=== PATIENT | male | born 1935 | race Caucasian/White ===

== ENCOUNTER 2017-02-17 11:05 | Inpatient (IN) | payer MEDICARE, BC, OTHER ==
[2017-02-17] MEDS ORDERED: Acetaminophen 325 MG Tab PO ONE (12:00)
[2017-02-17] MEDS ORDERED: Sodium Chloride 0.9% 1,000 ML IV ONE (12:00)
--- NOTE | 2017-02-17 12:05 | EDM.PDOC ---
ED HPI GENERAL MEDICAL PROBLEM - General Chief Complaint: General Stated Complaint: WEAK AND FEVER Time Seen by Provider: 02/17/17 12:00 Source of Information: Reports: Patient, Family History Limitations: Reports: No Limitations - History of Present Illness INITIAL COMMENTS - FREE TEXT/NARRATIVE: HISTORY AND PHYSICAL: History of present illness: [Patient comes to the emergency room, brought in by family. He is complaining of fever, increased weakness, fatigue and dry cough. Patient lives independently with his at a local care home community but he is currently being worked up for dementia by a clinic in [place], with [facility] care placement a definite possibility according to patient's niece. noticed that patient required more help with ADLs today and that he felt warm to touch. Patient complained of not feeling well and generalized malaise. Did not check temperature at home. Has felt cold on and off all morning. No earaches runny nose or sore throat. He's had a cough but no sputum production. Appetite has been decreased over the past 24 hours. No nausea or vomiting. He denies abdominal pain no change to bowel or bladder. No muscle or joint aches or pains.] Review of systems: As per history of present illness and below otherwise all systems reviewed and negative. Past medical history: As per history of present illness and as reviewed below otherwise noncontributory. Surgical history: As per history of present illness and as reviewed below otherwise noncontributory. Social history: No reported history of drug or alcohol abuse. Family history: As per history of present illness and as reviewed below otherwise noncontributory. Physical exam: HEENT: Atraumatic, normocephalic. TMs are pearly quijano and without erythema. Oral mucous membranes are pink and moist. No tonsillar swelling, erythema or exudate. Neck supple. No lymphadenopathy. Lungs: Clear to auscultation, breath sounds equal bilaterally. No wheezing, crackles or rales. Heart: S1S2, regular, negative for clicks, rubs, or JVD. Abdomen: Soft, nondistended, nontender. Negative for masses or hepatosplenomegaly. Negative for costovertebral tenderness. Pelvis: Stable nontender. Genitourinary: Deferred. Rectal: Deferred. Extremities: Atraumatic. Neurovascular unremarkable. Neuro: Awake, alert, oriented. Motor and sensory unremarkable throughout. Exam nonfocal. Diagnostics: [CBC, CMP, influenza A&B swab, UA, chest x-ray] Therapeutics: [250mL bolus NS, then 250mL/hour, Tamiflu 75mg po, Levaquin 500mg IV] Impression: [Influenza A pneumonia] Plan: Influenza swab +. Admit to inpatient under the care of Dr. Morgan Macdonald. Family is in agreement with today's plan. ] Definitive disposition and diagnosis as appropriate pending reevaluation and review of above. generalized Pain Score (Numeric/FACES): 3 - Related Data Allergies Allergy/AdvReac Type Severity Reaction Status Date / Time No Known Allergies Allergy Verified 07/30/14 15:37 Home Meds: Home Meds amLODIPine/atorvaSTATin [Amlodipine-Atorvast 10-10 mg] 10 mg 02/17/17 [History] Past Medical History - Past Health History Medical/Surgical History: Denies Medical/Surgical History Other HEENT History: Minimal hearing impairment "selective hearing more than anything" Cardiovascular History: Reports: None Respiratory History: Reports: None Other Gastrointestinal History: Heartburn in younger years, none for several years Genitourinary History: Reports: None Musculoskeletal History: Reports: None Other Musculoskeletal History: Current Soft tissue mass Left Forearm, "tender when bumped" Neurological History: Reports: Other (See Below) Other Neuro History: increased confusion, difficulty sleeping Psychiatric History: Reports: Dementia Endocrine/Metabolic History: Reports: None Hematologic History: Reports: None Dermatologic History: Reports: None - Past Surgical History Other GI Surgeries/Procedures: Relative states he had resection of colon last summer Social & Family History - Family History Family Medical History: Noncontributory - Tobacco Use Smoking Status *Q: Unknown Ever Smoked Second Hand Smoke Exposure: No - Caffeine Use Caffeine Use: Reports: None, Coffee - Recreational Drug Use Recreational Drug Use: No Drug Use in Last 12 Months: No ED ROS GENERAL - Review of Systems Review Of Systems: ROS reveals no pertinent complaints other than HPI. ED EXAM, GENERAL - Physical Exam Exam: See Below Course - Vital Signs Last Recorded V/S: Last Vital Signs Temp 100.8 F H 02/17/17 13:24 Pulse 98 02/17/17 11:45 Resp 18 02/17/17 11:45 BP 178/88 H 02/17/17 11:45 Pulse Ox 96 02/17/17 11:45 - Orders/Labs/Meds Orders: Active Orders 24 hr Category Date Time Status Chest 1V Frontal [CR] Stat Exams 02/17/17 12:01 Taken UA W/MICROSCOPIC [URIN] Stat Lab 02/17/17 12:01 Uncollected Levofloxacin/Dextrose 5%-Water [Levaquin in D5W 500 MG/ Med 02/17/17 14:08 Active 100 ML] 500 mg Premix Bag 1 bag IV ONETIME Sodium Chloride 0.9% [Normal Saline] 1,000 ml Med 02/17/17 12:00 Active IV STAT Medication Orders Sodium Chloride (Normal Saline) 1,000 mls @ 250 mls/hr IV STAT ONE Stop: 02/17/17 15:59 Last Admin: 02/17/17 12:22 Dose: 250 mls/hr Levofloxacin/Dextrose 500 mg/ (Premix) 100 mls @ 100 mls/hr IV ONETIME ONE Stop: 02/17/17 15:07 Last Admin: 02/17/17 14:23 Dose: 100 mls/hr Labs: Laboratory Tests 02/17/17 02/17/17 Range/Units 12:14 12:14 WBC 4.77 (4.0-11.0) K/uL RBC 4.27 L (4.50-5.90) M/uL Hgb 13.2 (13.0-17.0) g/dL Hct 40.7 (38.0-50.0) % MCV 95.3 (80.0-98.0) fL MCH 30.9 (27.0-32.0) pg MCHC 32.4 (31.0-37.0) g/dL RDW Std Deviation 46.1 (28.0-62.0) fl RDW Coeff of Stuart 13 (11.0-15.0) % Plt Count 146 L (150-400) K/uL MPV 11.30 (7.40-12.00) fL Add Manual Diff YES Neutrophils % (Manual) 60 (48.0-80.0) % Band Neutrophils % 6 % Lymphocytes % (Manual) 26 (16.0-40.0) % Immat Monocytes % (Man) Monocytes % (Manual) 7 (0.0-15.0) % Eosinophils % (Manual) 1 (0.0-7.0) % Nucleated RBC % 0.0 /100WBC Absolute Seg Neuts 2.9 (1.4-5.7) Band Neutrophils # 0.3 Lymphocytes # (Manual) 1.2 (0.6-2.4) Monocytes # (Manual) 0.3 (0.0-0.8) Eosinophils # (Manual) 0.0 (0.0-0.7) Nucleated RBCs # 0 K/uL Sodium 142 (136-146) mmol/L Potassium 4.7 (3.5-5.1) mmol/L Chloride 106 (98-110) mmol/L Carbon Dioxide 24 (21-31) mmol/L BUN 30 H (6.0-23.0) mg/dL Creatinine 2.0 H (0.6-1.5) mg/dL Est Cr Clr Drug Dosing 20.11 mL/min Estimated GFR (MDRD) 32.1 ml/min Glucose 98 (60-110) mg/dL Calcium 9.4 (8.8-10.8) mg/dL Total Bilirubin 0.8 (0.1-1.5) mg/dL AST 17 (5-40) IU/L ALT 9 (8-54) IU/L Alkaline Phosphatase 83 (40-150) Total Protein 7.8 (6.0-8.0) g/dL Albumin 4.0 (3.4-4.8) g/dL Globulin 3.8 H (2.0-3.5) g/dL Albumin/Globulin Ratio 1.1 L (1.3-2.8) Meds: Medications Generic Name Dose Route Start Last Admin Trade Name Freq PRN Reason Stop Dose Admin Sodium Chloride 1,000 mls @ 250 mls/hr 02/17/17 12:00 02/17/17 12:22 Normal Saline IV 02/17/17 15:59 250 mls/hr STAT ONE Administration Levofloxacin/Dextrose 500 mg/ 100 mls @ 100 mls/hr 02/17/17 14:08 02/17/17 14 :23 Premix IV 02/17/17 15:07 100 mls/hr ONETIME ONE Administration Discontinued Medications Generic Name Dose Route Start Last Admin Trade Name Freq PRN Reason Stop Dose Admin Acetaminophen 650 mg 02/17/17 12:00 02/17/17 12:22 Tylenol PO 02/17/17 12:01 650 mg NOW ONE Administration Oseltamivir Phosphate 75 mg 02/17/17 14:08 02/17/17 14:23 Tamiflu PO 02/17/17 14:09 75 mg ONETIME ONE Administration Departure - Departure Time of Disposition: 14:30 Disposition: Admitted As Inpatient 64 Condition: Good, Fair Clinical Impression: Influenza A, Pneumonia - Discharge Information - My Orders Last 24 Hours: My Active Orders 02/17/17 12:00 Sodium Chloride 0.9% [Normal Saline] 1,000 ml IV STAT 02/17/17 12:01 Chest 1V Frontal [CR] Stat UA W/MICROSCOPIC [URIN] Stat 02/17/17 14:08 Levofloxacin/Dextrose 5%-Water [Levaquin in D5W 500 MG/100 ML] 500 mg Premix Bag 1 bag IV ONETIME - Assessment/Plan Last 24 Hours: My Active Orders 02/17/17 12:00 Sodium Chloride 0.9% [Normal Saline] 1,000 ml IV STAT 02/17/17 12:01 Chest 1V Frontal [CR] Stat UA W/MICROSCOPIC [URIN] Stat 02/17/17 14:08 Levofloxacin/Dextrose 5%-Water [Levaquin in D5W 500 MG/100 ML] 500 mg Premix Bag 1 bag IV ONETIME
[2017-02-17] MEDS ORDERED: Oseltamivir 75 MG Cap PO ONE (14:08)
[2017-02-17] MEDS ORDERED: Levofloxacin/Dextrose 5%-Water 500 MG in Premix Bag 1 BAG IV ONE (14:08)
[2017-02-17] MEDS: Levofloxacin/Dextrose 5%-Water 750 MG in Premix Bag 1 BAG IV SCH (17:05)
[2017-02-17] MEDS ORDERED: Albuterol/Ipratropium 3.0-0.5 MG/3 ML Neb Soln NEB PRN (17:08)
[2017-02-17] MEDS ORDERED: Ondansetron 4 MG/2 ML SDV IVPUSH PRN (17:08)
--- NOTE | 2017-02-17 17:11 | PCM.HP ---
H&P History of Present Illness - General Admit Problem/Dx: Admission Diagnosis/Problem Admission Diagnosis/Problem Influenza - History of Present Illness Initial Comments - Free Text/Narative: 81 yo male with pmh of HTN, colon cancer with resection last year who presents with fevers, chills, and productive cough. Family reports that over the past year his dementia has worsened to the point where it is difficult for to take care of him at home. generalized Pain Score (Numeric/FACES): 3 - Related Data Allergies/Adverse Reactions: Allergies Allergy/AdvReac Type Severity Reaction Status Date / Time No Known Allergies Allergy Verified 07/30/14 15:37 Home Medications: Home Meds amLODIPine Besylate [Amlodipine Besylate] 10 mg PO DAILY 02/17/17 [History] amLODIPine/atorvaSTATin [Amlodipine-Atorvast 10-10 mg] 10 mg PO DAILY 02/17/17 [ History] Past Medical History - Past Health History Medical/Surgical History: Denies Medical/Surgical History Other HEENT History: Minimal hearing impairment "selective hearing more than anything" Cardiovascular History: Reports: None Respiratory History: Reports: None Other Gastrointestinal History: Heartburn in younger years, none for several years Genitourinary History: Reports: None Musculoskeletal History: Reports: None Other Musculoskeletal History: Current Soft tissue mass Left Forearm, "tender when bumped" Neurological History: Reports: Other (See Below) Other Neuro History: increased confusion, difficulty sleeping Psychiatric History: Reports: Dementia Endocrine/Metabolic History: Reports: None Hematologic History: Reports: None Dermatologic History: Reports: None - Past Surgical History Other GI Surgeries/Procedures: Relative states he had resection of colon last summer Social & Family History - Family History Family Medical History: Noncontributory - Tobacco Use Smoking Status *Q: Never Smoker Second Hand Smoke Exposure: No - Caffeine Use Caffeine Use: Reports: Coffee - Recreational Drug Use Recreational Drug Use: No Drug Use in Last 12 Months: No H&P Review of Systems - Review of Systems: Review Of Systems: ROS reveals no pertinent complaints other than HPI. Exam - Exam Exam: See Below - Vital Signs Vital Signs: Last Vital Signs Temp 37.2 C 02/17/17 15:03 Pulse 80 02/17/17 15:03 Resp 18 02/17/17 15:03 BP 178/88 H 02/17/17 11:45 Pulse Ox 96 02/17/17 15:03 Weight: 63.458 kg - Exam General: Cooperative. No: Oriented HEENT: Mucosa Moist & Kite Neck: Supple Lungs: Clear to Auscultation, Normal Respiratory Effort Cardiovascular: Regular Rate, Regular Rhythm GI/Abdominal Exam: Soft, Non-Tender Extremities: Non-Tender, No Pedal Edema Skin: Warm, Dry, Intact Neurological: No: Focal Deficit - Patient Data Lab Results Last 24 hrs: Laboratory Results - last 24 hr 02/17/17 Range/Units 15:50 Urine Color YELLOW Urine Appearance CLEAR Urine pH 6.0 (5.0-8.0) Ur Specific [place] 1.025 (1.001-1.035) Urine Protein 100 (NEGATIVE) mg/dL Urine Glucose (UA) NEGATIVE (NEGATIVE) mg/dL Urine Ketones NEGATIVE (NEGATIVE) mg/dL Urine Occult Blood TRACE-LYSED (NEGATIVE) Urine Nitrite NEGATIVE (NEGATIVE) Urine Bilirubin NEGATIVE (NEGATIVE) Urine Urobilinogen 0.2 (<2.0) EU/dL Ur Leukocyte Esterase NEGATIVE (NEGATIVE) Urine RBC 0-2 (0-2/HPF) Urine WBC RARE (0-5/HPF) Ur Epithelial Cells RARE (NONE-FEW) Urine Bacteria NOT SEEN (NEGATIVE) Result Diagrams: 02/18/17 05:20 02/18/17 05:20 *Q Meaningful Use (ADM) - VTE *Q VTE Criteria *Q: - Stroke *Q Stroke Criteria *Q: - AMI *Q AMI Criteria *Q: Problem List Initiated/Reviewed/Updated: Yes Orders Last 24hrs: Active Orders 24 hr Category Date Time Status Levofloxacin/Dextrose 5%-Water [Levaquin in D5W 750 MG/ Med 02/17/17 17:00 Active 150 ML] 750 mg Premix Bag 1 bag IV Q48H Oseltamivir [Tamiflu] Med 02/17/17 21:00 Active 30 mg PO BID Medication Orders Levofloxacin/Dextrose 750 mg/ (Premix) 150 mls @ 100 mls/hr IV Q48H [facility] Oseltamivir Phosphate (Tamiflu) 30 mg PO BID [facility] Assessment/Plan Comment:: 81 yo male admitted with influenza and possible pneumonia. He has renal insufficiency of with creatinine of 2.0 but currently uncertain of acuity. Will hydrate with IV fluids and treat with Levaquin and tamiflu. Patient will likely need nursing home home placement at discharge.
[2017-02-17] MEDS ORDERED: Sodium Chloride 0.9% 1,000 ML IV SCH (17:15)
[2017-02-17] MEDS: Acetaminophen 325 MG Tab PO PRN (21:21)
[2017-02-17] MEDS: Oseltamivir 30 MG Cap PO SCH (21:30)
[2017-02-18] MEDS: Acetaminophen 325 MG Tab PO PRN (07:40)
[2017-02-18] MEDS: Enoxaparin 30 MG/0.3 ML Syringe SUBCUT SCH (09:12)
[2017-02-18] MEDS: Oseltamivir 30 MG Cap PO SCH ×2 (09:12→21:27)
[2017-02-18] MEDS ORDERED: Sodium Chloride 0.9% 1,000 ML IV SCH (12:15)
--- NOTE | 2017-02-18 13:07 | PCM.PN ---
- Review of Systems Systems Review Comment:: feeling better today, reports difficulty urinating - Patient Data Vitals - Most Recent: Last Vital Signs Temp 36.9 C 02/18/17 12:32 Pulse 66 02/18/17 12:32 Resp 16 02/18/17 12:32 BP 176/81 H 02/18/17 12:32 Pulse Ox 93 L 02/18/17 12:32 Weight - Most Recent: 63.458 kg I&O - Last 24 Hours: Intake & Output 02/17/17 02/18/17 02/18/17 22:59 06:59 14:59 Intake Total 150 1100 Output Total 250 850 Balance -100 250 Lab Results Last 24 Hours: Laboratory Results - last 24 hr 02/17/17 02/18/17 02/18/17 Range/Units 15:50 05:20 05:20 WBC 5.03 (4.0-11.0) K/uL RBC 3.90 L (4.50-5.90) M/uL Hgb 12.0 L (13.0-17.0) g/dL Hct 37.3 L (38.0-50.0) % MCV 95.6 (80.0-98.0) fL MCH 30.8 (27.0-32.0) pg MCHC 32.2 (31.0-37.0) g/dL RDW Std Deviation 46.7 (28.0-62.0) fl RDW Coeff of Stuart 14 (11.0-15.0) % Plt Count 120 L (150-400) K/uL MPV 11.00 (7.40-12.00) fL Neut % (Auto) 74.6 (48.0-80.0) % Lymph % (Auto) 12.7 L (16.0-40.0) % Major % (Auto) 12.5 (0.0-15.0) % Eos % (Auto) 0.0 (0.0-7.0) % Baso % (Auto) 0.2 (0.0-1.5) % Neut # (Auto) 3.8 (1.4-5.7) K/uL Lymph # (Auto) 0.6 (0.6-2.4) K/uL Major # (Auto) 0.6 (0.0-0.8) K/uL Eos # (Auto) 0.0 (0.0-0.7) K/uL Baso # (Auto) 0.0 (0.0-0.1) K/uL Nucleated RBC % 0.0 /100WBC Nucleated RBCs # 0 K/uL Sodium 140 (136-146) mmol/L Potassium 5.0 (3.5-5.1) mmol/L Chloride 108 (98-110) mmol/L Carbon Dioxide 22 (21-31) mmol/L BUN 35 H (6.0-23.0) mg/dL Creatinine 2.5 H (0.6-1.5) mg/dL Est Cr Clr Drug Dosing 20.09 mL/min Estimated GFR (MDRD) 24.8 ml/min Glucose 95 (60-110) mg/dL Calcium 8.7 L (8.8-10.8) mg/dL Urine Color YELLOW Urine Appearance CLEAR Urine pH 6.0 (5.0-8.0) Ur Specific [place] 1.025 (1.001-1.035) Urine Protein 100 (NEGATIVE) mg/dL Urine Glucose (UA) NEGATIVE (NEGATIVE) mg/dL Urine Ketones NEGATIVE (NEGATIVE) mg/dL Urine Occult Blood TRACE-LYSED (NEGATIVE) Urine Nitrite NEGATIVE (NEGATIVE) Urine Bilirubin NEGATIVE (NEGATIVE) Urine Urobilinogen 0.2 (<2.0) EU/dL Ur Leukocyte Esterase NEGATIVE (NEGATIVE) Urine RBC 0-2 (0-2/HPF) Urine WBC RARE (0-5/HPF) Ur Epithelial Cells RARE (NONE-FEW) Urine Bacteria NOT SEEN (NEGATIVE) Med Orders - Current: Current Medications Acetaminophen (Tylenol) 650 mg PO Q4H PRN PRN Reason: Pain (Mild 1-3)/fever Last Admin: 02/18/17 07:40 Dose: 650 mg Albuterol/Ipratropium (Duoneb 3.0-0.5 Mg/3 Ml) 3 ml NEB Q4HRRT PRN PRN Reason: Shortness Of Breath/wheezing Enoxaparin Sodium (Lovenox) 30 mg SUBCUT DAILY [facility] Last Admin: 02/18/17 09:12 Dose: 30 mg Levofloxacin/Dextrose 750 mg/ (Premix) 150 mls @ 100 mls/hr IV Q48H [facility] Last Admin: 02/17/17 17:05 Dose: Not Given Sodium Chloride (Normal Saline) 1,000 mls @ 125 mls/hr IV ASDIRECTED [facility] Ondansetron HCl (Zofran) 4 mg IVPUSH Q4H PRN PRN Reason: Nausea Oseltamivir Phosphate (Tamiflu) 30 mg PO BID [facility] Last Admin: 02/18/17 09:12 Dose: 30 mg Discontinued Medications Acetaminophen (Tylenol) 650 mg PO NOW ONE Stop: 02/17/17 12:01 Last Admin: 02/17/17 12:22 Dose: 650 mg Sodium Chloride (Normal Saline) 1,000 mls @ 250 mls/hr IV STAT ONE Stop: 02/17/17 15:59 Last Admin: 02/17/17 12:22 Dose: 250 mls/hr Levofloxacin/Dextrose 500 mg/ (Premix) 100 mls @ 100 mls/hr IV ONETIME ONE Stop: 02/17/17 15:07 Last Admin: 02/17/17 14:23 Dose: 100 mls/hr Sodium Chloride (Normal Saline) 1,000 mls @ 125 mls/hr IV ASDIRECTED [facility] Stop: 02/18/17 01:14 Last Admin: 02/17/17 17:51 Dose: 125 mls/hr Oseltamivir Phosphate (Tamiflu) 75 mg PO ONETIME ONE Stop: 02/17/17 14:09 Last Admin: 02/17/17 14:23 Dose: 75 mg - Exam General: Cooperative. No: Oriented Lungs: Clear to Auscultation, Normal Respiratory Effort Cardiovascular: Regular Rate, Regular Rhythm GI/Abdominal Exam: Soft, Non-Tender Extremities: No Pedal Edema Skin: Warm, Dry, Intact - Problem List Review Problem List Initiated/Reviewed/Updated: Yes - My Orders Last 24 Hours: My Active Orders 02/17/17 17:00 Levofloxacin/Dextrose 5%-Water [Levaquin in D5W 750 MG/150 ML] 750 mg Premix Bag 1 bag IV Q48H 02/17/17 17:07 Oxygen Therapy [RC] PRN Vital Signs [RC] Q4H Sequential Compression Device [OM.PC] Per Unit Routine 02/17/17 17:08 Antiembolic Devices [RC] PER UNIT ROUTINE Acetaminophen [Tylenol] 650 mg PO Q4H PRN Albuterol/Ipratropium [DuoNeb 3.0-0.5 MG/3 ML] 3 ml NEB Q4HRRT PRN Ondansetron [Zofran] 4 mg IVPUSH Q4H PRN 02/17/17 17:09 RT Aerosol Therapy [RC] ASDIRECTED 02/17/17 17:10 CULTURE SPUTUM + SMEAR [RM] Routine 02/17/17 21:00 Oseltamivir [Tamiflu] 30 mg PO BID 02/18/17 09:00 Enoxaparin [Lovenox] 30 mg SUBCUT DAILY 02/18/17 12:11 Bladder Scan [RC] ONETIME 02/18/17 12:15 Sodium Chloride 0.9% [Normal Saline] 1,000 ml IV ASDIRECTED 02/18/17 13:03 Urinary Catheter Assessment [RC] ASDIRECTED Head wo Cont [CT] Routine 02/18/17 13:15 Insert Harper Catheter [Insert Urinary Catheter] [OM.PC] Q24H 02/19/17 05:11 BASIC METABOLIC PANEL,BMP [CHEM] AM CBC WITH AUTO DIFF [HEME] AM 02/20/17 05:11 BASIC METABOLIC PANEL,BMP [CHEM] AM CBC WITH AUTO DIFF [HEME] AM - Plan Plan:: 81 yo male admitted with influenza and possible pneumonia. Influenza: continue tamiflu CAP: levaquin, cultures pending Acute kidney injury: greater than 999 on bladder scan will place harper Worsening Dementia: will check CT head Dispo: likely to SNF in [place] in 1-2 days
[2017-02-19] MEDS: Enoxaparin 30 MG/0.3 ML Syringe SUBCUT SCH (08:45)
[2017-02-19] MEDS: Oseltamivir 30 MG Cap PO SCH ×2 (08:47→21:05)
[2017-02-19] MEDS: Hydrochlorothiazide 25 MG Tab PO SCH (08:47)
--- NOTE | 2017-02-19 10:16 | PCM.PN ---
- Review of Systems Systems Review Comment:: no new complaints - Patient Data Vitals - Most Recent: Last Vital Signs Temp 37.3 C 02/19/17 09:04 Pulse 68 02/19/17 08:00 Resp 18 02/19/17 08:00 BP 189/85 H 02/19/17 08:00 Pulse Ox 96 02/19/17 08:00 Weight - Most Recent: 63.458 kg I&O - Last 24 Hours: Intake & Output 02/18/17 02/19/17 02/19/17 22:59 06:59 14:59 Intake Total 1932 320 Output Total 1775 1700 Balance 157 -1380 Lab Results Last 24 Hours: Laboratory Results - last 24 hr 02/19/17 02/19/17 Range/Units 05:08 05:08 WBC 5.64 (4.0-11.0) K/uL RBC 3.87 L (4.50-5.90) M/uL Hgb 12.0 L (13.0-17.0) g/dL Hct 36.6 L (38.0-50.0) % MCV 94.6 (80.0-98.0) fL MCH 31.0 (27.0-32.0) pg MCHC 32.8 (31.0-37.0) g/dL RDW Std Deviation 46.2 (28.0-62.0) fl RDW Coeff of Stuart 13 (11.0-15.0) % Plt Count 109 L (150-400) K/uL MPV 11.20 (7.40-12.00) fL Neut % (Auto) 69.7 (48.0-80.0) % Lymph % (Auto) 17.2 (16.0-40.0) % [place] % (Auto) 12.9 (0.0-15.0) % Eos % (Auto) 0.0 (0.0-7.0) % Baso % (Auto) 0.2 (0.0-1.5) % Neut # (Auto) 3.9 (1.4-5.7) K/uL Lymph # (Auto) 1.0 (0.6-2.4) K/uL [place] # (Auto) 0.7 (0.0-0.8) K/uL Eos # (Auto) 0.0 (0.0-0.7) K/uL Baso # (Auto) 0.0 (0.0-0.1) K/uL Nucleated RBC % 0.0 /100WBC Nucleated RBCs # 0 K/uL Sodium 140 (136-146) mmol/L Potassium 4.7 (3.5-5.1) mmol/L Chloride 108 (98-110) mmol/L Carbon Dioxide 24 (21-31) mmol/L BUN 34 H (6.0-23.0) mg/dL Creatinine 2.0 H (0.6-1.5) mg/dL Est Cr Clr Drug Dosing 25.12 mL/min Estimated GFR (MDRD) 32.1 ml/min Glucose 87 (60-110) mg/dL Calcium 8.4 L (8.8-10.8) mg/dL Med Orders - Current: Current Medications Acetaminophen (Tylenol) 650 mg PO Q4H PRN PRN Reason: Pain (Mild 1-3)/fever Last Admin: 02/18/17 07:40 Dose: 650 mg Albuterol/Ipratropium (Duoneb 3.0-0.5 Mg/3 Ml) 3 ml NEB Q4HRRT PRN PRN Reason: Shortness Of Breath/wheezing Amlodipine Besylate (Norvasc) 10 mg PO DAILY [facility] Enoxaparin Sodium (Lovenox) 30 mg SUBCUT DAILY [facility] Last Admin: 02/19/17 08:45 Dose: Not Given Hydrochlorothiazide (Hydrochlorothiazide) 25 mg PO DAILY [facility] Last Admin: 02/19/17 08:47 Dose: 25 mg Levofloxacin/Dextrose 750 mg/ (Premix) 150 mls @ 100 mls/hr IV Q48H [facility] Last Admin: 02/17/17 17:05 Dose: Not Given Ondansetron HCl (Zofran) 4 mg IVPUSH Q4H PRN PRN Reason: Nausea Oseltamivir Phosphate (Tamiflu) 30 mg PO BID [facility] Last Admin: 02/19/17 08:47 Dose: 30 mg Discontinued Medications Acetaminophen (Tylenol) 650 mg PO NOW ONE Stop: 02/17/17 12:01 Last Admin: 02/17/17 12:22 Dose: 650 mg Sodium Chloride (Normal Saline) 1,000 mls @ 250 mls/hr IV STAT ONE Stop: 02/17/17 15:59 Last Admin: 02/17/17 12:22 Dose: 250 mls/hr Levofloxacin/Dextrose 500 mg/ (Premix) 100 mls @ 100 mls/hr IV ONETIME ONE Stop: 02/17/17 15:07 Last Admin: 02/17/17 14:23 Dose: 100 mls/hr Sodium Chloride (Normal Saline) 1,000 mls @ 125 mls/hr IV ASDIRECTED [facility] Stop: 02/18/17 01:14 Last Admin: 02/17/17 17:51 Dose: 125 mls/hr Sodium Chloride (Normal Saline) 1,000 mls @ 125 mls/hr IV ASDIRECTED [facility] Stop: 02/18/17 20:14 Last Admin: 02/18/17 13:21 Dose: 125 mls/hr Oseltamivir Phosphate (Tamiflu) 75 mg PO ONETIME ONE Stop: 02/17/17 14:09 Last Admin: 02/17/17 14:23 Dose: 75 mg - Exam General: Alert, Oriented Lungs: Clear to Auscultation, Normal Respiratory Effort Cardiovascular: Regular Rate, Regular Rhythm GI/Abdominal Exam: Soft, Non-Tender Extremities: No Pedal Edema - Problem List Review Problem List Initiated/Reviewed/Updated: Yes - My Orders Last 24 Hours: My Active Orders 02/18/17 13:03 Urinary Catheter Assessment [RC] Q4H Head wo Cont [CT] Routine 02/18/17 13:15 Insert Harper Catheter [Insert Urinary Catheter] [OM.PC] Q24H 02/20/17 05:11 BASIC METABOLIC PANEL,BMP [CHEM] AM CBC WITH AUTO DIFF [HEME] AM - Plan Plan:: 81 yo male admitted with influenza and possible pneumonia. CAP/influenza: continue levaquin and tamiflu Obstructive uropathy: Creatinine down to 2.0 today, harper in place Dementia: CT head reported no acute pathology. Case management consulted regarding snf placement.
[2017-02-19] MEDS: amLODIPine 5 MG Tab PO SCH (10:25)
--- NOTE | 2017-02-19 16:16 | CR ---
EXAM DATE: 02/17/17 PATIENT'S AGE: 81 Patient: KOFFI DURAN Facility: [place], [place] Site . Site : 1935 Study: XRay Chest [id number]/[id number] 1:10:55 PM Ordering Physician: Doctor Longoria Final Report: HISTORY: Pain and shortness of breath. COMPARISON: None. FINDINGS: Single AP view of the chest. Mild airspace opacity in the right lower lobe may represent pneumonia. Heart size and pulmonary vascularity within normal limits. Costophrenic angles sharp. Dictated by Wanda Prince MD @ Feb 17 2017 2:00PM (Electronic Signature) Report Signed by Proxy. REBEKAH
[2017-02-19] MEDS: Levofloxacin/Dextrose 5%-Water 750 MG in Premix Bag 1 BAG IV SCH (17:01)
--- NOTE | 2017-02-19 19:31 | CT ---
EXAM DATE: 02/17/17 PATIENT'S AGE: 81 Patient: KOFFI DURAN Facility: [place], [place] Site . Site : 1933 Study: CT Head [id number] 2:45:48 PM Ordering Physician: Renae Mora Final Report: INDICATION: Confusion. TECHNIQUE: Noncontrast CT of the brain was performed with images acquired from skull base to vertex. COMPARISON: 2009. FINDINGS: There is generalized cerebral atrophy with ex vacuo dilatation of ventricles. There is marked periventricular white matter hypoattenuation consistent with chronic small vessel ischemic disease. There is atherosclerotic calcification of the carotid siphons. 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 There is no acute intracranial hemorrhage. No mass effect or midline shift is present. The quijano-white matter differentiation is normal. Bilateral lens replacements are noted. The visualized portions of the mastoids are normal. The visualized portions of the paranasal sinuses are normal. No fractures are identified. IMPRESSION: No acute intracranial abnormality Please note that all CT scans at this facility use dose modulation, iterative reconstruction, and/or weight-based dosing when appropriate to reduce radiation dose to as low as reasonably achievable. Dictated by Marcelo Bender MD @ Feb 18 2017 3:29PM (Electronic Signature) Report Signed by Proxy. MTDD
[2017-02-20] MEDS ORDERED: Diltiazem 25 MG/5 ML SDV IVPUSH ONE ×2 (09:00→10:15)
[2017-02-20] MEDS ORDERED: Magnesium Sulfate/Water 2 GM in Premix Bag 1 BAG IV ONE (09:18)
--- NOTE | 2017-02-20 09:20 | PCM.PN ---
- General Info Date of Service: 02/20/17 Admission Dx/Problem (Free Text): Admission Diagnosis/Problem Admission Diagnosis/Problem Influenza Subjective Update: Patient was doing well this morning. Denied pain or SOB. Nursing brought patient to bathroom and he had moderate BM. He was washinghis hands and reported not feeling well and then started falling backwards. Nursing caught him and assisted him. He was then helped to his bed. Patient HR noted to be fluctuating and irregular, 70-160s. Nurse noted when patient initially hooked to vitals machine HR was 160s. He is alert, disoriented per baseline. Denies chest pain, SOB or palpitations. He continues to report "I just don't feel right, just let me lay here and I will be better." Functional Status: Reports: Pain Controlled, Tolerating Diet, Ambulating, Urinating - Review of Systems General: Reports: No Symptoms. Denies: Fever HEENT: Reports: No Symptoms. Denies: Sore Throat Pulmonary: Reports: No Symptoms. Denies: Shortness of Breath Cardiovascular: Reports: Lightheadedness. Denies: Chest Pain, Palpitations, Dyspnea on Exertion Gastrointestinal: Reports: No Symptoms. Denies: Nausea, Vomiting Genitourinary: Reports: No Symptoms. Denies: Dysuria, Frequency, Burning Skin: Denies: No Symptoms, Cyanosis Neurological: Reports: No Symptoms. Denies: Confusion Psychiatric: Reports: No Symptoms. Denies: Confusion - Patient Data Vitals - Most Recent: Last Vital Signs Temp 98.3 F 02/20/17 04:00 Pulse 65 02/20/17 04:00 Resp 18 02/20/17 04:00 BP 164/73 H 02/20/17 04:00 Pulse Ox 92 L 02/20/17 04:00 Weight - Most Recent: 63.458 kg I&O - Last 24 Hours: Intake & Output 02/19/17 02/20/17 02/20/17 22:59 06:59 14:59 Intake Total 870 336 Output Total 1275 1000 Balance -405 -664 Lab Results Last 24 Hours: Laboratory Results - last 24 hr 02/20/17 02/20/17 02/20/17 Range/Units 05:23 05:23 05:23 WBC 4.98 (4.0-11.0) K/uL RBC 4.06 L (4.50-5.90) M/uL Hgb 12.7 L (13.0-17.0) g/dL Hct 37.8 L (38.0-50.0) % MCV 93.1 (80.0-98.0) fL MCH 31.3 (27.0-32.0) pg MCHC 33.6 (31.0-37.0) g/dL RDW Std Deviation 44.5 (28.0-62.0) fl RDW Coeff of Stuart 13 (11.0-15.0) % Plt Count 112 L (150-400) K/uL MPV 10.80 (7.40-12.00) fL Neut % (Auto) 66.4 (48.0-80.0) % Lymph % (Auto) 19.7 (16.0-40.0) % [place] % (Auto) 13.7 (0.0-15.0) % Eos % (Auto) 0.2 (0.0-7.0) % Baso % (Auto) 0.0 (0.0-1.5) % Neut # (Auto) 3.3 (1.4-5.7) K/uL Lymph # (Auto) 1.0 (0.6-2.4) K/uL [place] # (Auto) 0.7 (0.0-0.8) K/uL Eos # (Auto) 0.0 (0.0-0.7) K/uL Baso # (Auto) 0.0 (0.0-0.1) K/uL Nucleated RBC % 0.0 /100WBC Nucleated RBCs # 0 K/uL Sodium 138 (136-146) mmol/L Potassium 4.0 (3.5-5.1) mmol/L Chloride 105 (98-110) mmol/L Carbon Dioxide 23 (21-31) mmol/L BUN 35 H (6.0-23.0) mg/dL Creatinine 1.7 H (0.6-1.5) mg/dL Est Cr Clr Drug Dosing 29.55 mL/min Estimated GFR (MDRD) 38.7 ml/min Glucose 87 (60-110) mg/dL POC Glucose (60-110) mg/dL Calcium 8.5 L (8.8-10.8) mg/dL Magnesium 1.4 L (1.5-2.3) mEq/L 02/20/17 Range/Units 08:49 WBC (4.0-11.0) K/uL RBC (4.50-5.90) M/uL Hgb (13.0-17.0) g/dL Hct (38.0-50.0) % MCV (80.0-98.0) fL MCH (27.0-32.0) pg MCHC (31.0-37.0) g/dL RDW Std Deviation (28.0-62.0) fl RDW Coeff of Stuart (11.0-15.0) % Plt Count (150-400) K/uL MPV (7.40-12.00) fL Neut % (Auto) (48.0-80.0) % Lymph % (Auto) (16.0-40.0) % [place] % (Auto) (0.0-15.0) % Eos % (Auto) (0.0-7.0) % Baso % (Auto) (0.0-1.5) % Neut # (Auto) (1.4-5.7) K/uL Lymph # (Auto) (0.6-2.4) K/uL [place] # (Auto) (0.0-0.8) K/uL Eos # (Auto) (0.0-0.7) K/uL Baso # (Auto) (0.0-0.1) K/uL Nucleated RBC % /100WBC Nucleated RBCs # K/uL Sodium (136-146) mmol/L Potassium (3.5-5.1) mmol/L Chloride (98-110) mmol/L Carbon Dioxide (21-31) mmol/L BUN (6.0-23.0) mg/dL Creatinine (0.6-1.5) mg/dL Est Cr Clr Drug Dosing mL/min Estimated GFR (MDRD) ml/min Glucose (60-110) mg/dL POC Glucose 133 H (60-110) mg/dL Calcium (8.8-10.8) mg/dL Magnesium (1.5-2.3) mEq/L Med Orders - Current: Current Medications Acetaminophen (Tylenol) 650 mg PO Q4H PRN PRN Reason: Pain (Mild 1-3)/fever Last Admin: 02/18/17 07:40 Dose: 650 mg Albuterol/Ipratropium (Duoneb 3.0-0.5 Mg/3 Ml) 3 ml NEB Q4HRRT PRN PRN Reason: Shortness Of Breath/wheezing Amlodipine Besylate (Norvasc) 10 mg PO DAILY [facility] Last Admin: 02/19/17 10:25 Dose: 10 mg Enoxaparin Sodium (Lovenox) 30 mg SUBCUT DAILY [facility] Last Admin: 02/19/17 08:45 Dose: Not Given Hydrochlorothiazide (Hydrochlorothiazide) 25 mg PO DAILY [facility] Last Admin: 02/19/17 08:47 Dose: 25 mg Levofloxacin/Dextrose 750 mg/ (Premix) 150 mls @ 100 mls/hr IV Q48H [facility] Last Admin: 02/19/17 17:01 Dose: 100 mls/hr Magnesium Sulfate 2 gm/ Premix 50 mls @ 50 mls/hr IV ONETIME ONE Stop: 02/20/17 10:17 Ondansetron HCl (Zofran) 4 mg IVPUSH Q4H PRN PRN Reason: Nausea Oseltamivir Phosphate (Tamiflu) 30 mg PO BID [facility] Last Admin: 02/19/17 21:05 Dose: 30 mg Discontinued Medications Acetaminophen (Tylenol) 650 mg PO NOW ONE Stop: 02/17/17 12:01 Last Admin: 02/17/17 12:22 Dose: 650 mg Diltiazem HCl (Diltiazem) 10 mg IVPUSH ONETIME ONE Stop: 02/20/17 09:01 Sodium Chloride (Normal Saline) 1,000 mls @ 250 mls/hr IV STAT ONE Stop: 02/17/17 15:59 Last Admin: 02/17/17 12:22 Dose: 250 mls/hr Levofloxacin/Dextrose 500 mg/ (Premix) 100 mls @ 100 mls/hr IV ONETIME ONE Stop: 02/17/17 15:07 Last Admin: 02/17/17 14:23 Dose: 100 mls/hr Sodium Chloride (Normal Saline) 1,000 mls @ 125 mls/hr IV ASDIRECTED [facility] Stop: 02/18/17 01:14 Last Admin: 02/17/17 17:51 Dose: 125 mls/hr Sodium Chloride (Normal Saline) 1,000 mls @ 125 mls/hr IV ASDIRECTED [facility] Stop: 02/18/17 20:14 Last Admin: 02/18/17 13:21 Dose: 125 mls/hr Oseltamivir Phosphate (Tamiflu) 75 mg PO ONETIME ONE Stop: 02/17/17 14:09 Last Admin: 02/17/17 14:23 Dose: 75 mg - Exam General: Alert, Cooperative, No Acute Distress. No: Oriented Lungs: Clear to Auscultation, Normal Respiratory Effort Cardiovascular: Irregular Rhythm, Tachycardia. No: Murmurs GI/Abdominal Exam: Normal Bowel Sounds, Soft, Non-Tender, No Organomegaly, No Distention, No Abnormal Bruit, No Mass, Pelvis Stable Extremities: Normal Inspection, Normal Range of Motion, Non-Tender, No Pedal Edema, Normal Capillary Refill Neurological: No New Focal Deficit Psy/Mental Status: Alert, Normal Affect, Normal Mood - Problem List & Annotations (1) New onset a-fib SNOMED Code(s): 75111489 Code(s): I48.91 - UNSPECIFIED ATRIAL FIBRILLATION Status: Acute Current Visit: Yes (2) Influenza A SNOMED Code(s): 842228777 Code(s): J10.1 - FLU DUE TO OTH IDENT INFLUENZA VIRUS W OTH RESP MANIFEST Status: Acute Current Visit: Yes (3) Pneumonia SNOMED Code(s): 505537233 Code(s): J18.9 - PNEUMONIA, UNSPECIFIED ORGANISM Status: Acute Current Visit: Yes (4) Obstructive uropathy SNOMED Code(s): 1305405 Code(s): N13.9 - OBSTRUCTIVE AND REFLUX UROPATHY, UNSPECIFIED Status: Acute Current Visit: Yes (5) Acute kidney injury SNOMED Code(s): 99899533 Code(s): N17.9 - ACUTE KIDNEY FAILURE, UNSPECIFIED Status: Acute Current Visit: Yes (6) Dementia SNOMED Code(s): 97951251 Code(s): F03.90 - UNSPECIFIED DEMENTIA WITHOUT BEHAVIORAL DISTURBANCE Status: Chronic Current Visit: Yes Qualifiers: Alzheimer's disease onset: unspecified onset Dementia behavioral disturbance: without behavioral disturbance - Problem List Review Problem List Initiated/Reviewed/Updated: Yes - My Orders Last 24 Hours: My Active Orders 02/20/17 08:53 Chest 1V Frontal [CR] Urgent Head wo Cont [CT] Stat 02/20/17 08:55 Telemetry Monitoring [Cardiac Monitoring] [RC] . DIRECTED 02/20/17 09:18 Magnesium Sulfate/Water [Magnesium Sulfate 2 GM in Water 50 ML] 2 gm Premix Bag 1 bag IV ONETIME - Plan Plan:: This 81 year old male was admitted with influenza and possible community acquired pneumonia. 1. CAP/influenza: Improving. Plan to continue Levaquin and Tamiflu. CXR improved from last imaging, no signs of R lower lobe pneumonia. 2. New onset Atrial fibrillation: Will give Diltiazem 10 mg now and monitor response. Likely start Metoprolol for rate control. I spoke with regarding anticoagulation and she requests this to be started given risk of stroke vs falls. Will obtain ECHO. Magnesium 1.4, will supplement 2 gm IV today monitor in am. Due to event this morning, will obtain CXR and head CT as well. 0945: Another episode of unresponsiveness occurred in CT prior to Head CT. Nursing went down, patient unable to follow commands. VS stable. Head CT revealed no acute findings and no change from the prior exam. Stable chronic microvascular changes and chronic lacunar infarcts. notified of changes and is at bedside. She again was asked about code status and decided he wouldn' t want to be a burden and would like patient to be DNR status. After CT patient is definitely more lethargic. 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 Dr. Macdonald in room with patient and assessed him as well. Dr Hoskins consulted and will be over to see patient HR continues to be Afib rates 120-140s. Does drop and convert to SR then quickly back to afib. Will give another dose of Diltiazem 10 mg IV and monitor. MRI head, MRA head and neck ordered. Will start anticoagulation after imaging complete. Due to renal function will need to start Coumadin rather than new agents. 3. Obstructive uropathy with LAVERN: Improving Creatinine down to 1.7 today, harper in place 4. Dementia: CT head reported no acute pathology. Case management consulted regarding prison placement. VTE prophylaxis: Pending imaging, will fully anticoagulate with Heparin while bridging Coumadin. Dispo: [place] [facility], pending improvement. Will hold discharge today due to new onset afib.
[2017-02-20] MEDS ORDERED: Sodium Chloride 0.9% 1,000 ML IV ONE (10:16)
[2017-02-20] MEDS: Hydrochlorothiazide 25 MG Tab PO SCH (10:30)
[2017-02-20] MEDS: Enoxaparin 30 MG/0.3 ML Syringe SUBCUT SCH (10:30)
[2017-02-20] MEDS: amLODIPine 5 MG Tab PO SCH (10:31)
[2017-02-20] MEDS: Oseltamivir 30 MG Cap PO SCH ×2 (10:31→21:29)
[2017-02-20] MEDS ORDERED: Digoxin 500 MCG/2 ML Amp IVPUSH ONE (11:36)
[2017-02-20] MEDS ORDERED: Metoprolol Tartrate 25 MG Tab PO ONE (11:37)
[2017-02-20] MEDS ORDERED: Diltiazem 100 MG in Sodium Chloride 0.9% 100 ML IV SCH (11:45)
--- NOTE | 2017-02-20 12:15 | PCM.SN ---
- Free Text/Narrative Note: Will hold anticoagulation until MRI imaging completed, also recommended per Dr Hoskins to hold off. Patient more alert now than previous. Given Diltiazem 10 mg IV x 2 with little to no change. Continues to go between SR 70-80s and afib 140s. Will hold off on Diltiazem drip for now, give Metoprolol tartrate 25 mg and Digoxin 125 mcg IV and monitor.
--- NOTE | 2017-02-20 12:44 | PCM.CONSN ---
- General Info Date of Service: 02/20/17 Admission Dx/Problem (Free Text): Admission Diagnosis/Problem Admission Diagnosis/Problem Influenza Subjective Update: 81 year old man with a history of colon cancer status post resection, dementia admitted with influenza, LAVERN, obstructive uropathy. Neurology was consulted for altered mental status, generalized weakness. He was brought to the emergency department on February 17 by family for fever, fatigue, dry cough. Influenza swab was positive. He has treated for influenza and possible bacterial pneumonia. CT head completed on February 17 revealed generalized atrophy and marked white matter changes consistent with small vessel disease. Creatinine upon admission was 2 increasing to 2.5 on February 18 then trending down now 1.7. BUN remains elevated, today 35. Urinalysis on February 17 showed trace blood, negative for evidence of urinary tract infection. Today, while washing his hands after a BM, he complained that he wasnt feeling well and started to fall. Nursing staff helped to his bed. HR reportedly fluctuating 70s 160s. While in head CT, he had episode of unresponsiveness. After CT, he was lethargic. He has had paroxysmal atrial fibrillation today, which is a new diagnosis. [facility] . He's been evaluated for dementia and long-term care placement has been considered. He has an appt with me in clinic for evaluation of dementia. His noted that he has had issues with word finding and forgetfulness since colon cancer surgery in May 2016. Med Hx: colon ca dementia - Review of Systems Systems Review Comment:: unable to assess due to mental status - Patient Data Vitals - Most Recent: Last Vital Signs Temp 36.4 C 02/20/17 08:45 Pulse 140 H 02/20/17 12:00 Resp 17 02/20/17 12:00 BP 106/67 02/20/17 12:00 Pulse Ox 93 L 02/20/17 12:00 Weight - Most Recent: 63.458 kg I&O - Last 24 Hours: Intake & Output 02/19/17 02/20/17 02/20/17 22:59 06:59 14:59 Intake Total 066 717 0380 Output Total 1275 1000 Balance -405 664 1050 Lab Results Last 24 Hours: Laboratory Results - last 24 hr 02/20/17 02/20/17 02/20/17 Range/Units 05:23 05:23 05:23 WBC 4.98 (4.0-11.0) K/uL RBC 4.06 L (4.50-5.90) M/uL Hgb 12.7 L (13.0-17.0) g/dL Hct 37.8 L (38.0-50.0) % MCV 93.1 (80.0-98.0) fL MCH 31.3 (27.0-32.0) pg MCHC 33.6 (31.0-37.0) g/dL RDW Std Deviation 44.5 (28.0-62.0) fl RDW Coeff of Stuart 13 (11.0-15.0) % Plt Count 112 L (150-400) K/uL MPV 10.80 (7.40-12.00) fL Neut % (Auto) 66.4 (48.0-80.0) % Lymph % (Auto) 19.7 (16.0-40.0) % [place] % (Auto) 13.7 (0.0-15.0) % Eos % (Auto) 0.2 (0.0-7.0) % Baso % (Auto) 0.0 (0.0-1.5) % Neut # (Auto) 3.3 (1.4-5.7) K/uL Lymph # (Auto) 1.0 (0.6-2.4) K/uL [place] # (Auto) 0.7 (0.0-0.8) K/uL Eos # (Auto) 0.0 (0.0-0.7) K/uL Baso # (Auto) 0.0 (0.0-0.1) K/uL Nucleated RBC % 0.0 /100WBC Nucleated RBCs # 0 K/uL Sodium 138 (136-146) mmol/L Potassium 4.0 (3.5-5.1) mmol/L Chloride 105 (98-110) mmol/L Carbon Dioxide 23 (21-31) mmol/L BUN 35 H (6.0-23.0) mg/dL Creatinine 1.7 H (0.6-1.5) mg/dL Est Cr Clr Drug Dosing 29.55 mL/min Estimated GFR (MDRD) 38.7 ml/min Glucose 87 (60-110) mg/dL POC Glucose (60-110) mg/dL Calcium 8.5 L (8.8-10.8) mg/dL Magnesium 1.4 L (1.5-2.3) mEq/L Prolactin (1-23) ng/mL 02/20/17 02/20/17 Range/Units 08:49 10:15 WBC (4.0-11.0) K/uL RBC (4.50-5.90) M/uL Hgb (13.0-17.0) g/dL Hct (38.0-50.0) % MCV (80.0-98.0) fL MCH (27.0-32.0) pg MCHC (31.0-37.0) g/dL RDW Std Deviation (28.0-62.0) fl RDW Coeff of [place] (11.0-15.0) % Plt Count (150-400) K/uL MPV (7.40-12.00) fL Neut % (Auto) (48.0-80.0) % Lymph % (Auto) (16.0-40.0) % [place] % (Auto) (0.0-15.0) % Eos % (Auto) (0.0-7.0) % Baso % (Auto) (0.0-1.5) % Neut # (Auto) (1.4-5.7) K/uL Lymph # (Auto) (0.6-2.4) K/uL [place] # (Auto) (0.0-0.8) K/uL Eos # (Auto) (0.0-0.7) K/uL Baso # (Auto) (0.0-0.1) K/uL Nucleated RBC % /100WBC Nucleated RBCs # K/uL Sodium (136-146) mmol/L Potassium (3.5-5.1) mmol/L Chloride (98-110) mmol/L Carbon Dioxide (21-31) mmol/L BUN (6.0-23.0) mg/dL Creatinine (0.6-1.5) mg/dL Est Cr Clr Drug Dosing mL/min Estimated GFR (MDRD) ml/min Glucose (60-110) mg/dL POC Glucose 133 H (60-110) mg/dL Calcium (8.8-10.8) mg/dL Magnesium (1.5-2.3) mEq/L Prolactin 32 H (1-23) ng/mL Med Orders - Current: Current Medications Acetaminophen (Tylenol) 650 mg PO Q4H PRN PRN Reason: Pain (Mild 1-3)/fever Last Admin: 02/18/17 07:40 Dose: 650 mg Albuterol/Ipratropium (Duoneb 3.0-0.5 Mg/3 Ml) 3 ml NEB Q4HRRT PRN PRN Reason: Shortness Of Breath/wheezing Amlodipine Besylate (Norvasc) 10 mg PO DAILY [facility] Last Admin: 02/20/17 10:31 Dose: Not Given Enoxaparin Sodium (Lovenox) 30 mg SUBCUT DAILY [facility] Last Admin: 02/20/17 10:30 Dose: Not Given Hydrochlorothiazide (Hydrochlorothiazide) 25 mg PO DAILY [facility] Last Admin: 02/20/17 10:30 Dose: Not Given Levofloxacin/Dextrose 750 mg/ (Premix) 150 mls @ 100 mls/hr IV Q48H [facility] Last Admin: 02/19/17 17:01 Dose: 100 mls/hr Ondansetron HCl (Zofran) 4 mg IVPUSH Q4H PRN PRN Reason: Nausea Oseltamivir Phosphate (Tamiflu) 30 mg PO BID [facility] Last Admin: 02/20/17 10:31 Dose: Not Given Discontinued Medications Acetaminophen (Tylenol) 650 mg PO NOW ONE Stop: 02/17/17 12:01 Last Admin: 02/17/17 12:22 Dose: 650 mg Digoxin (Lanoxin) 125 mcg IVPUSH ONETIME ONE Stop: 02/20/17 11:37 Last Admin: 02/20/17 11:45 Dose: 125 mcg Diltiazem HCl (Diltiazem) 10 mg IVPUSH ONETIME ONE Stop: 02/20/17 09:01 Last Admin: 02/20/17 09:11 Dose: 10 mg Diltiazem HCl (Diltiazem) 10 mg IVPUSH ONETIME ONE Stop: 02/20/17 10:16 Last Admin: 02/20/17 10:26 Dose: 10 mg Sodium Chloride (Normal Saline) 1,000 mls @ 250 mls/hr IV STAT ONE Stop: 02/17/17 15:59 Last Admin: 02/17/17 12:22 Dose: 250 mls/hr Levofloxacin/Dextrose 500 mg/ (Premix) 100 mls @ 100 mls/hr IV ONETIME ONE Stop: 02/17/17 15:07 Last Admin: 02/17/17 14:23 Dose: 100 mls/hr Sodium Chloride (Normal Saline) 1,000 mls @ 125 mls/hr IV ASDIRECTED [facility] Stop: 02/18/17 01:14 Last Admin: 02/17/17 17:51 Dose: 125 mls/hr Sodium Chloride (Normal Saline) 1,000 mls @ 125 mls/hr IV ASDIRECTED [facility] Stop: 02/18/17 20:14 Last Admin: 02/18/17 13:21 Dose: 125 mls/hr Magnesium Sulfate 2 gm/ Premix 50 mls @ 50 mls/hr IV ONETIME ONE Stop: 02/20/17 10:17 Last Admin: 02/20/17 10:10 Dose: 50 mls/hr Sodium Chloride (Normal Saline) 1,000 mls @ 999 mls/hr IV .Bolus ONE Stop: 02/20/17 11:16 Last Admin: 02/20/17 10:24 Dose: 999 mls/hr Diltiazem HCl 100 mg/ Sodium (Chloride) 100 mls @ 5 mls/hr IV TITRATE [facility]MON; 5 MG /HR PRN Reason: Protocol Metoprolol Tartrate (Lopressor) 25 mg PO ONETIME ONE Stop: 02/20/17 11:38 Last Admin: 02/20/17 11:46 Dose: 25 mg Oseltamivir Phosphate (Tamiflu) 75 mg PO ONETIME ONE Stop: 02/17/17 14:09 Last Admin: 02/17/17 14:23 Dose: 75 mg - Exam Physical Findings Comments:: Constitutional: No acute distress Psychiatric: Affect: appropriate Neurological: Mental Status: Level of consciousness: Awake, alert. Orientation: Oriented to person. Answered sorry when asked to year, place. He correctly stated president was trump. . Comprehension/Praxis: Impaired comprehension of complet tasks and tasks that cross midline. Shows thumb, touches ear. Language: 2 fluent sentences missing article and hesitates on nouns. Right left confusion? Cranial Nerves: Pupils equally round and reactive to light. Visual denny full to confrontation without extinction. Gaze conjugate, did not follow EOM testing commands. Sensation intact and symmetric to light touch. Facial strength is full and symmetric. Palate elevates symmetrically. Normal shrug bilaterally. Tongue protrudes midline Motor: Normal tone in all groups. No drift. Power is 5/5 throughout proximal and distal muscles. Sensation: Sensation is intact to temp and symmetric. Deep tendon reflexes: Brisk throughout Coordination: Finger to nose intact on the right, finger to finger intact on left, poor understanding of task HEENT: Eyes: non icteric, Mouth: moist mucus membranes Cardiovascular: irregularly irregular GI: non tender Skin: no visible rash Consult PN Assessment/Plan Procedures: Procedures EXC FOREARM LES SC < 3 CM (08/04/14) OFFICE/OUTPATIENT VISIT EST (07/01/13) OFFICE/OUTPATIENT VISIT NEW (07/01/14) (1) Encephalopathy acute SNOMED Code(s): 0400669 Code(s): G93.40 - ENCEPHALOPATHY, UNSPECIFIED Current Visit: Yes Assessment:: 81 year old man with likely dementia, admitted with influenza, LAVERN now with paroxysmal a fib with RVR and episodes of altered mental status X 2 today, possibly global ischemia related to fluctuating BP, a-fib. No tonic clonic activity / seizure activity was noted by staff. On examination, he has dysphasia, but this may be part of his preexisting dementia. Otherwise, I don t find evidence of focal deficits, but I cant rule out ophthalmoparesis or ataxia with limited examination. I agree with MRI brain. If no large areas of ischemia identified, I agree with starting heparin drip and warfarin. I agree with avoiding newer agent in lieu of renal dysfunction. Problem List Initiated/Reviewed/Updated: Yes
[2017-02-20] MEDS ORDERED: Heparin Sodium 5,000 Units/ML Vial IVPUSH ONE (16:25)
--- NOTE | 2017-02-20 17:10 | CR ---
EXAM DATE: 02/17/17 PATIENT'S AGE: 81 Patient: KOFFI DURAN Facility: [place], [place] Site . Site : 1935 Study: XRay Chest [id number]/16/2018 9:37:45 AM Ordering Physician: Renae Mora Final Report: INDICATION: Near syncope TECHNIQUE: Chest 1 views COMPARISON: February 17, 2017 FINDINGS: Cardiovascular and mediastinum: Heart size and vasculature are normal in caliber and appearance. Lungs and pleural spaces: Lungs are clear. No sign of infiltrate or mass. No sign of pleural effusion. No pneumothorax. Bones and soft tissues: No significant findings. IMPRESSION: Unremarkable exam. No sign of right lower lobe pneumonia on today`s exam. Dictated by Nicola Cruz MD @ 02/20/2017 9:48:56 AM Dictated by: Nicola Cruz MD @ 02/20/2017 09:49:04 (Electronic Signature) Report Signed by Proxy. REBEKAH
--- NOTE | 2017-02-20 17:18 | CT ---
EXAM DATE: 02/17/17 PATIENT'S AGE: 81 Patient: KOFFI DURAN Facility: [place], [place] Site . Site : 1935 Study: CT Head WO CONT [id number]/16/2018 9:56:26 AM Ordering Physician: Renae Mora Final Report: INDICATION: Near syncope. Altered mental status. TECHNIQUE: Head CT without contrast. COMPARISON: February 18, 2017. FINDINGS: CSF spaces: Within normal limits for age. Brain parenchyma: There are nonspecific low attenuation white matter changes consistent with chronic microvascular disease. Stable chronic lacunar infarcts. No sign of mass, hemorrhage, or midline shift. Stable benign calcification along the anterior falx. Skull base and calvarium: The visualized paranasal sinuses and mastoid air cells demonstrate no acute or significant findings. The visualized orbits are grossly unremarkable. No skull fractures. There is intracranial atherosclerosis. IMPRESSION: No acute findings and no change from the prior exam. Stable chronic microvascular changes and chronic lacunar infarcts. Please note that all CT scans at this facility use dose modulation, iterative reconstruction, and/or weight-based dosing when appropriate to reduce radiation dose to as low as reasonably achievable. Dictated by Nicola Cruz MD @ Feb 20 2017 10:08AM (Electronic Signature) Report Signed by Proxy. [facility]
[2017-02-20] MEDS: Heparin Sod,Pork In 0.45% Nacl 25,000 UNIT/500 ML IV.SOLN IV SCH (17:21)
--- NOTE | 2017-02-20 17:30 | MR ---
EXAM DATE: 02/17/17 PATIENT'S AGE: 81 Patient: KOFFI DURAN Facility: [place], [place] Site . Site : 1935 Study: MRI Head [id number] 2:13:05 PM Ordering Physician: Renae Mora Final Report: INDICATION: 81-year-old male with altered mental status. Generalized weakness. TECHNIQUE: Sagittal T1, axial FLAIR, T2, diffusion-weighted and susceptibility weighted images. Wxdh-ku-befmfs magnetic resonance angiography of the [place] arteries. Kmtp-hu-antvly magnetic resonance angiography of the carotid arteries and vertebral arteries: COMPARISON: CT brain the performed earlier today. FINDINGS: MRI brain: Diffusion-weighted images are abnormal with several small foci of restricted diffusion within the deep bilateral supratentorial white matter. Findings are most prominent in the posterior left frontal lobe with associated changes in the right frontal and right occipital lobes consistent with areas of recent small-vessel ischemic infarction. In addition, there are multiple areas of cavitation within the deep cerebral white matter and the basal ganglia that are consistent with areas of chronic infarction. The described changes are superimposed on diffuse FLAIR and T2 hyperintensity throughout the supratentorial white matter involving the basal ganglia, thalamus and in the brainstem. The findings may be due to advanced chronic microvascular ischemia for example associate with diabetes, hypertension or possibly sequela of prior radiation in the appropriate clinical setting. There is no mass effect. There is no evidence of intracranial hemorrhage. No midline shift. No subdural fluid collections. Bilateral cataract surgery. The orbits, sella turcica and suprasellar cistern are otherwise unremarkable. Mild inflammatory mucosal thickening in the left maxillary, ethmoid and left frontal sinuses. MRA [place] of [place]: The intracranial segments of the internal carotid arteries and basilar artery are widely patent. Hypoplastic right A-1 segment. The anterior, middle and posterior cerebral arteries their proximal branches are unremarkable with no evidence of an aneurysm over 3 mm. No high-flow arteriovenous malformation. MRA carotid arteries and vertebral arteries: Study performed without contrast. The bilateral common carotid arteries internal and external carotid arteries appear widely patent. Midcervical segments of both vertebral arteries appear widely. Impression 1. Several recent small vessel ischemic infarctions noted within the bilateral supratentorial white matter (left hemisphere more numerous than right). 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 2. No evidence of intracranial hemorrhage or mass effect. 3. No large vessel occlusion or high-grade stenosis of proximal cerebral arteries. Congenitally hypoplastic right A-1 segment. 4. Widely patent bilateral carotid arteries and vertebral arteries in the neck. Dictated by Preston Guerra MD @ 02/20/2017 2:42:33 PM Dictated by: Preston Guerra MD @ 02/20/2017 14:43:01 (Electronic Signature) Report Signed by Proxy. REBEKAH
--- NOTE | 2017-02-20 17:31 | MR ---
[facility] DATE: 02/17/17 PATIENT'S AGE: 81 Patient: KOFFI DURAN Facility: [place], [place] Site . Site : 1935 Study: MRI Neck Angio Angio [id number] 2:16:49 PM Ordering Physician: Renae Mora Final Report: INDICATION: 81-year-old male with altered mental status. Generalized weakness. TECHNIQUE: Sagittal T1, axial FLAIR, T2, diffusion-weighted and susceptibility weighted images. Crtt-es-gurhnd magnetic resonance angiography of the [place] arteries. Imfo-nu-oucqqk magnetic resonance angiography of the carotid arteries and vertebral arteries: COMPARISON: CT brain the performed earlier today. FINDINGS: MRI brain: Diffusion-weighted images are abnormal with several small foci of restricted diffusion within the deep bilateral supratentorial white matter. Findings are most prominent in the posterior left frontal lobe with associated changes in the right frontal and right occipital lobes consistent with areas of recent small-vessel ischemic infarction. In addition, there are multiple areas of cavitation within the deep cerebral white matter and the basal ganglia that are consistent with areas of chronic infarction. The described changes are superimposed on diffuse FLAIR and T2 hyperintensity throughout the supratentorial white matter involving the basal ganglia, thalamus and in the brainstem. The findings may be due to advanced chronic microvascular ischemia for example associate with diabetes, hypertension or possibly sequela of prior radiation in the appropriate clinical setting. There is no mass effect. There is no evidence of intracranial hemorrhage. No midline shift. No subdural fluid collections. Bilateral cataract surgery. The orbits, sella turcica and suprasellar cistern are otherwise unremarkable. Mild inflammatory mucosal thickening in the left maxillary, ethmoid and left frontal sinuses. MRA [place] of [place]: The intracranial segments of the internal carotid arteries and basilar artery are widely patent. Hypoplastic right A-1 segment. The anterior, middle and posterior cerebral arteries their proximal branches are unremarkable with no evidence of an aneurysm over 3 mm. No high-flow arteriovenous malformation. MRA carotid arteries and vertebral arteries: Study performed without contrast. The bilateral common carotid arteries internal and external carotid arteries appear widely patent. Midcervical segments of both vertebral arteries appear widely. Impression 1. Several recent small vessel ischemic infarctions noted within the bilateral supratentorial white matter (left hemisphere more numerous than right). 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 2. No evidence of intracranial hemorrhage or mass effect. 3. No large vessel occlusion or high-grade stenosis of proximal cerebral arteries. Congenitally hypoplastic right A-1 segment. 4. Widely patent bilateral carotid arteries and vertebral arteries in the neck. Dictated by Preston Guerra MD @ 02/20/2017 2:42:33 PM Dictated by: Preston Guerra MD @ 02/20/2017 14:43:17 (Electronic Signature) Report Signed by Proxy. REBEKAH
--- NOTE | 2017-02-20 17:32 | MR ---
EXAM DATE: 02/17/17 PATIENT'S AGE: 81 Patient: KOFFI DURAN Facility: [place], [place] Site . Site : 1935 Study: MRI Head Angio [id number] 2:19:26 PM Ordering Physician: Renae Mora Final Report: INDICATION: AMS,GENERAL WEAKNESS INDICATION: 81-year-old male with altered mental status. Generalized weakness. TECHNIQUE: Sagittal T1, axial FLAIR, T2, diffusion-weighted and susceptibility weighted images. Xzxd-dm-[id number] magnetic resonance angiography of the [place] of [place] arteries. Dmwn-wc-ewkely magnetic resonance angiography of the carotid arteries and vertebral arteries: COMPARISON: CT brain the performed earlier today. FINDINGS: MRI brain: Diffusion-weighted images are abnormal with several small foci of restricted diffusion within the deep bilateral supratentorial white matter. Findings are most prominent in the posterior left frontal lobe with associated changes in the right frontal and right occipital lobes consistent with areas of recent small-vessel ischemic infarction. In addition, there are multiple areas of cavitation within the deep cerebral white matter and the basal ganglia that are consistent with areas of chronic infarction. The described changes are superimposed on diffuse FLAIR and T2 hyperintensity throughout the supratentorial white matter involving the basal ganglia, thalamus and in the brainstem. The findings may be due to advanced chronic microvascular ischemia for example associate with diabetes, hypertension or possibly sequela of prior radiation in the appropriate clinical setting. There is no mass effect. There is no evidence of intracranial hemorrhage. No midline shift. No subdural fluid collections. Bilateral cataract surgery. The orbits, sella turcica and suprasellar cistern are otherwise unremarkable. Mild inflammatory mucosal thickening in the left maxillary, ethmoid and left frontal sinuses. MRA [place] of [place]: The intracranial segments of the internal carotid arteries and basilar artery are widely patent. Hypoplastic right A-1 segment. The anterior, middle and posterior cerebral arteries their proximal branches are unremarkable with no evidence of an aneurysm over 3 mm. No high-flow arteriovenous malformation. MRA carotid arteries and vertebral arteries: Study performed without contrast. The bilateral common carotid arteries internal and external carotid arteries appear widely patent. Midcervical segments of both vertebral arteries appear widely. Impression: 1. Several recent small vessel ischemic infarctions noted within the bilateral supratentorial white matter (left hemisphere more numerous than right). 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 2. No evidence of intracranial hemorrhage or mass effect. 3. No large vessel occlusion or high-grade stenosis of proximal cerebral arteries. Congenitally hypoplastic right A-1 segment. 4. Widely patent bilateral carotid arteries and vertebral arteries in the neck. Dictated by Preston Guerra MD @ 02/20/2017 2:42:33 PM Dictated by: Preston Guerra MD @ 02/20/2017 14:43:43 (Electronic Signature) Report Signed by Proxy. REBEKAH
[2017-02-20] MEDS: Metoprolol Tartrate 25 MG Tab PO SCH (21:28)
[2017-02-21] MEDS ORDERED: Magnesium Sulfate/Water 4 GM in Premix Bag 1 BAG IV ONE (08:12)
[2017-02-21] MEDS: amLODIPine 5 MG Tab PO SCH (08:41)
[2017-02-21] MEDS: Metoprolol Tartrate 25 MG Tab PO SCH ×2 (08:42→21:23)
[2017-02-21] MEDS: Hydrochlorothiazide 25 MG Tab PO SCH (08:42)
[2017-02-21] MEDS: Oseltamivir 30 MG Cap PO SCH ×2 (09:07→21:25)
--- NOTE | 2017-02-21 09:58 | PCM.CONSN ---
- General Info Date of Service: 02/21/17 Admission Dx/Problem (Free Text): Admission Diagnosis/Problem Admission Diagnosis/Problem Influenza Subjective Update: Waves his hand indicating so-so when I asked how he was doing. He says he is not usual self but cannot articulate why. He denies any pain. - Patient Data Vitals - Most Recent: Last Vital Signs Temp 36.9 C 02/21/17 07:49 Pulse 60 02/21/17 08:42 Resp 18 02/21/17 07:49 BP 160/68 H 02/21/17 08:42 Pulse Ox 93 L 02/21/17 07:49 Weight - Most Recent: 63.458 kg I&O - Last 24 Hours: Intake & Output 02/20/17 02/21/17 02/21/17 22:59 06:59 14:59 Intake Total 150 675 Output Total 725 500 Balance -575 175 Lab Results Last 24 Hours: Laboratory Results - last 24 hr 02/20/17 02/20/17 02/21/17 Range/Units 10:15 16:27 00:15 WBC (4.0-11.0) K/uL RBC (4.50-5.90) M/uL Hgb (13.0-17.0) g/dL Hct (38.0-50.0) % MCV (80.0-98.0) fL MCH (27.0-32.0) pg MCHC (31.0-37.0) g/dL RDW Std Deviation (28.0-62.0) fl RDW Coeff of [place] (11.0-15.0) % Plt Count (150-400) K/uL MPV (7.40-12.00) fL Neut % (Auto) (48.0-80.0) % Lymph % (Auto) (16.0-40.0) % [place] % (Auto) (0.0-15.0) % Eos % (Auto) (0.0-7.0) % Baso % (Auto) (0.0-1.5) % Neut # (Auto) (1.4-5.7) K/uL Lymph # (Auto) (0.6-2.4) K/uL [place] # (Auto) (0.0-0.8) K/uL Eos # (Auto) (0.0-0.7) K/uL Baso # (Auto) (0.0-0.1) K/uL Nucleated RBC % /100WBC Nucleated RBCs # K/uL APTT 26.5 101.4 H (18.6-31.3) SEC Sodium (136-146) mmol/L Potassium (3.5-5.1) mmol/L Chloride (98-110) mmol/L Carbon Dioxide (21-31) mmol/L BUN (6.0-23.0) mg/dL Creatinine (0.6-1.5) mg/dL Est Cr Clr Drug Dosing mL/min Estimated GFR (MDRD) ml/min Glucose (60-110) mg/dL Calcium (8.8-10.8) mg/dL Magnesium (1.5-2.3) mEq/L Prolactin 32 H (1-23) ng/mL 02/21/17 02/21/17 02/21/17 Range/Units 06:12 06:12 06:12 WBC 6.87 (4.0-11.0) K/uL RBC 3.80 L (4.50-5.90) M/uL Hgb 11.6 L (13.0-17.0) g/dL Hct 35.5 L (38.0-50.0) % MCV 93.4 (80.0-98.0) fL MCH 30.5 (27.0-32.0) pg MCHC 32.7 (31.0-37.0) g/dL RDW Std Deviation 44.5 (28.0-62.0) fl RDW Coeff of [place] 13 (11.0-15.0) % Plt Count 114 L (150-400) K/uL MPV 11.40 (7.40-12.00) fL Neut % (Auto) 71.3 (48.0-80.0) % Lymph % (Auto) 19.1 (16.0-40.0) % [place] % (Auto) 9.5 (0.0-15.0) % Eos % (Auto) 0.0 (0.0-7.0) % Baso % (Auto) 0.1 (0.0-1.5) % Neut # (Auto) 4.9 (1.4-5.7) K/uL Lymph # (Auto) 1.3 (0.6-2.4) K/uL [place] # (Auto) 0.7 (0.0-0.8) K/uL Eos # (Auto) 0.0 (0.0-0.7) K/uL Baso # (Auto) 0.0 (0.0-0.1) K/uL Nucleated RBC % 0.0 /100WBC Nucleated RBCs # 0 K/uL APTT 71.3 H (18.6-31.3) SEC Sodium 138 (136-146) mmol/L Potassium 4.0 (3.5-5.1) mmol/L Chloride 105 (98-110) mmol/L Carbon Dioxide 23 (21-31) mmol/L BUN 34 H (6.0-23.0) mg/dL Creatinine 1.7 H (0.6-1.5) mg/dL Est Cr Clr Drug Dosing 29.55 mL/min Estimated GFR (MDRD) 38.7 ml/min Glucose 100 (60-110) mg/dL Calcium 8.4 L (8.8-10.8) mg/dL Magnesium 1.3 L (1.5-2.3) mEq/L Prolactin (1-23) ng/mL Med Orders - Current: Current Medications Acetaminophen (Tylenol) 650 mg PO Q4H PRN PRN Reason: Pain (Mild 1-3)/fever Last Admin: 02/18/17 07:40 Dose: 650 mg Albuterol/Ipratropium (Duoneb 3.0-0.5 Mg/3 Ml) 3 ml NEB Q4HRRT PRN PRN Reason: Shortness Of Breath/wheezing Amlodipine Besylate (Norvasc) 10 mg PO DAILY [facility] Last Admin: 02/21/17 08:41 Dose: 10 mg Hydrochlorothiazide (Hydrochlorothiazide) 25 mg PO DAILY [facility] Last Admin: 02/21/17 08:42 Dose: 25 mg Levofloxacin/Dextrose 750 mg/ (Premix) 150 mls @ 100 mls/hr IV Q48H [facility] Last Admin: 02/19/17 17:01 Dose: 100 mls/hr Heparin Sod,Pork In 0.45% Nacl (Heparin-1/2ns 25,000 Units/500) 25,000 unit in 500 mls @ 22.845 mls/hr IV TITRATE AMMON; 18 UNITS/KG/HR PRN Reason: Protocol Last Titration: 02/21/17 07:07 Dose: 13 units/kg/hr, 16.499 mls/hr Magnesium Sulfate 4 gm/ Premix 100 mls @ 50 mls/hr IV ONETIME ONE Stop: 02/21/17 10:11 Last Admin: 02/21/17 09:12 Dose: 50 mls/hr Metoprolol Tartrate (Lopressor) 25 mg PO Q12HR [facility] Last Admin: 02/21/17 08:42 Dose: 25 mg Ondansetron HCl (Zofran) 4 mg IVPUSH Q4H PRN PRN Reason: Nausea Oseltamivir Phosphate (Tamiflu) 30 mg PO BID [facility] Last Admin: 02/21/17 09:07 Dose: 30 mg Warfarin Sodium (Coumadin) 2.5 mg PO 1400 AMMON Discontinued Medications Acetaminophen (Tylenol) 650 mg PO NOW ONE Stop: 02/17/17 12:01 Last Admin: 02/17/17 12:22 Dose: 650 mg Digoxin (Lanoxin) 125 mcg IVPUSH ONETIME ONE Stop: 02/20/17 11:37 Last Admin: 02/20/17 11:45 Dose: 125 mcg Diltiazem HCl (Diltiazem) 10 mg IVPUSH ONETIME ONE Stop: 02/20/17 09:01 Last Admin: 02/20/17 09:11 Dose: 10 mg Diltiazem HCl (Diltiazem) 10 mg IVPUSH ONETIME ONE Stop: 02/20/17 10:16 Last Admin: 02/20/17 10:26 Dose: 10 mg Enoxaparin Sodium (Lovenox) 30 mg SUBCUT DAILY [facility] Last Admin: 02/20/17 10:30 Dose: Not Given Heparin Sodium (Porcine) (Heparin Sodium) 5,000 units IVPUSH ONETIME ONE Stop: 02/20/17 16:26 Last Admin: 02/20/17 17:21 Dose: 5,000 units Sodium Chloride (Normal Saline) 1,000 mls @ 250 mls/hr IV STAT ONE Stop: 02/17/17 15:59 Last Admin: 02/17/17 12:22 Dose: 250 mls/hr Levofloxacin/Dextrose 500 mg/ (Premix) 100 mls @ 100 mls/hr IV ONETIME ONE Stop: 02/17/17 15:07 Last Admin: 02/17/17 14:23 Dose: 100 mls/hr Sodium Chloride (Normal Saline) 1,000 mls @ 125 mls/hr IV ASDIRECTED AMMON Stop: 02/18/17 01:14 Last Admin: 02/17/17 17:51 Dose: 125 mls/hr Sodium Chloride (Normal Saline) 1,000 mls @ 125 mls/hr IV ASDIRECTED AMMON Stop: 02/18/17 20:14 Last Admin: 02/18/17 13:21 Dose: 125 mls/hr Magnesium Sulfate 2 gm/ Premix 50 mls @ 50 mls/hr IV ONETIME ONE Stop: 02/20/17 10:17 Last Admin: 02/20/17 10:10 Dose: 50 mls/hr Sodium Chloride (Normal Saline) 1,000 mls @ 999 mls/hr IV .Bolus ONE Stop: 02/20/17 11:16 Last Admin: 02/20/17 10:24 Dose: 999 mls/hr Diltiazem HCl 100 mg/ Sodium (Chloride) 100 mls @ 5 mls/hr IV TITRATE AMMON; 5 MG /HR PRN Reason: Protocol Metoprolol Tartrate (Lopressor) 25 mg PO ONETIME ONE Stop: 02/20/17 11:38 Last Admin: 02/20/17 11:46 Dose: 25 mg Oseltamivir Phosphate (Tamiflu) 75 mg PO ONETIME ONE Stop: 02/17/17 14:09 Last Admin: 02/17/17 14:23 Dose: 75 mg Warfarin Sodium (Coumadin Ask) 1 each PO ONETIME ONE Stop: 02/21/17 08:13 Last Admin: 02/21/17 09:26 Dose: Not Given - Exam Physical Findings Comments:: Constitutional: No acute distress Psychiatric: Affect: appropriate Neurological: Mental Status: Level of consciousness: Awake, alert. Orientation: Oriented to person. Does not know year. He states he is in a basement somewhere. He correctly stated president was Trump. . Comprehension/Praxis: Impaired comprehension of task. Language: 2 fluent sentences missing article and hesitates on nouns. Cranial Nerves: Pupils equally round and reactive to light. Visual denny full to confrontation without extinction. Gaze conjugate, did not follow EOM testing commands. Sensation intact and symmetric to light touch. Facial strength is full and symmetric. Palate elevates symmetrically. Normal shrug bilaterally. Tongue protrudes midline Motor: Normal tone in all groups. No drift. Power is 5/5 throughout proximal and distal muscles. Sensation: Sensation is intact to temp and symmetric. Deep tendon reflexes: Brisk throughout MRI brain w/o contrast 02/20/2017 puctate foci of signal change on DWI w/o change on ADC, likely subacute infarcts in subcortical white matter in bilateral hemisphere. Extensive, confluent white matter T2/flair hyperintensity as well T2/hyperintensity in the brainstem, thalami and basal ganglia; multiple lacunar infarct in the subcortical white matter, basal ganglia and thalami are noted. MRA head and neck showed no significant stenosis Consult PN Assessment/Plan Procedures: Procedures EXC FOREARM LES SC < 3 CM (08/04/14) OFFICE/OUTPATIENT VISIT EST (07/01/13) OFFICE/OUTPATIENT VISIT NEW (07/01/14) (1) Encephalopathy acute SNOMED Code(s): 2001009 Code(s): G93.40 - ENCEPHALOPATHY, UNSPECIFIED Current Visit: Yes Assessment:: 81 year old man with dementia, admitted with influenza, LAVERN now with paroxysmal a fib with RVR and episodes of altered mental status yesterday, now improved. I 'm not sure if he is back to his baseline cognitive functioning at this point. MRI showed small subcortical infarcts, subacute. White matter changes are severe suggesting dementia may be vascular. He denies any history of radiation. -f/u TTE -agree with warfarin with heparin bridge -hold antiplatelet agent given that he is on anticoagulation -start atorvastatin 40 mg daily if no contraindication -check Hgb A1c and lipid panel Problem List Initiated/Reviewed/Updated: Yes
--- NOTE | 2017-02-21 10:24 | PCM.PN ---
- General Info Date of Service: 02/21/17 Admission Dx/Problem (Free Text): Admission Diagnosis/Problem Admission Diagnosis/Problem Influenza Subjective Update: Alert and niece reports he is back to almost baseline, little confusion still. But much better than yesterday. Mejia is more talkative and alert today. Denies any pain, no trouble breathing. Does not remember yesterday at all. Functional Status: Reports: Pain Controlled, Tolerating Diet, Ambulating, Urinating - Review of Systems HEENT: Reports: No Symptoms. Denies: Contact Lenses, Rhinitis, Visual Changes Pulmonary: Reports: No Symptoms. Denies: Shortness of Breath, Cough, Sputum Cardiovascular: Reports: No Symptoms. Denies: Chest Pain, Palpitations, Edema Gastrointestinal: Reports: No Symptoms. Denies: Abdominal Pain Genitourinary: Reports: No Symptoms. Denies: Dysuria, Frequency, Burning Neurological: Reports: Confusion. Denies: Headache, Numbness, Paresthesia Psychiatric: Reports: No Symptoms - Patient Data Vitals - Most Recent: Last Vital Signs Temp 98.4 F 02/21/17 07:49 Pulse 60 02/21/17 08:42 Resp 18 02/21/17 07:49 BP 160/68 H 02/21/17 08:42 Pulse Ox 93 L 02/21/17 07:49 Weight - Most Recent: 63.458 kg I&O - Last 24 Hours: Intake & Output 02/20/17 02/21/17 02/21/17 22:59 06:59 14:59 Intake Total 150 675 Output Total 725 500 Balance -575 175 Lab Results Last 24 Hours: Laboratory Results - last 24 hr 02/20/17 02/20/17 02/21/17 Range/Units 10:15 16:27 00:15 WBC (4.0-11.0) K/uL RBC (4.50-5.90) M/uL Hgb (13.0-17.0) g/dL Hct (38.0-50.0) % MCV (80.0-98.0) fL MCH (27.0-32.0) pg MCHC (31.0-37.0) g/dL RDW Std Deviation (28.0-62.0) fl RDW Coeff of Stuart (11.0-15.0) % Plt Count (150-400) K/uL MPV (7.40-12.00) fL Neut % (Auto) (48.0-80.0) % Lymph % (Auto) (16.0-40.0) % [place] % (Auto) (0.0-15.0) % Eos % (Auto) (0.0-7.0) % Baso % (Auto) (0.0-1.5) % Neut # (Auto) (1.4-5.7) K/uL Lymph # (Auto) (0.6-2.4) K/uL [place] # (Auto) (0.0-0.8) K/uL Eos # (Auto) (0.0-0.7) K/uL Baso # (Auto) (0.0-0.1) K/uL Nucleated RBC % /100WBC Nucleated RBCs # K/uL APTT 26.5 101.4 H (18.6-31.3) SEC Sodium (136-146) mmol/L Potassium (3.5-5.1) mmol/L Chloride (98-110) mmol/L Carbon Dioxide (21-31) mmol/L BUN (6.0-23.0) mg/dL Creatinine (0.6-1.5) mg/dL Est Cr Clr Drug Dosing mL/min Estimated GFR (MDRD) ml/min Glucose (60-110) mg/dL Calcium (8.8-10.8) mg/dL Magnesium (1.5-2.3) mEq/L Prolactin 32 H (1-23) ng/mL 02/21/17 02/21/17 02/21/17 Range/Units 06:12 06:12 06:12 WBC 6.87 (4.0-11.0) K/uL RBC 3.80 L (4.50-5.90) M/uL Hgb 11.6 L (13.0-17.0) g/dL Hct 35.5 L (38.0-50.0) % MCV 93.4 (80.0-98.0) fL MCH 30.5 (27.0-32.0) pg MCHC 32.7 (31.0-37.0) g/dL RDW Std Deviation 44.5 (28.0-62.0) fl RDW Coeff of Stuart 13 (11.0-15.0) % Plt Count 114 L (150-400) K/uL MPV 11.40 (7.40-12.00) fL Neut % (Auto) 71.3 (48.0-80.0) % Lymph % (Auto) 19.1 (16.0-40.0) % [place] % (Auto) 9.5 (0.0-15.0) % Eos % (Auto) 0.0 (0.0-7.0) % Baso % (Auto) 0.1 (0.0-1.5) % Neut # (Auto) 4.9 (1.4-5.7) K/uL Lymph # (Auto) 1.3 (0.6-2.4) K/uL [place] # (Auto) 0.7 (0.0-0.8) K/uL Eos # (Auto) 0.0 (0.0-0.7) K/uL Baso # (Auto) 0.0 (0.0-0.1) K/uL Nucleated RBC % 0.0 /100WBC Nucleated RBCs # 0 K/uL APTT 71.3 H (18.6-31.3) SEC Sodium 138 (136-146) mmol/L Potassium 4.0 (3.5-5.1) mmol/L Chloride 105 (98-110) mmol/L Carbon Dioxide 23 (21-31) mmol/L BUN 34 H (6.0-23.0) mg/dL Creatinine 1.7 H (0.6-1.5) mg/dL Est Cr Clr Drug Dosing 29.55 mL/min Estimated GFR (MDRD) 38.7 ml/min Glucose 100 (60-110) mg/dL Calcium 8.4 L (8.8-10.8) mg/dL Magnesium 1.3 L (1.5-2.3) mEq/L Prolactin (1-23) ng/mL Med Orders - Current: Current Medications Acetaminophen (Tylenol) 650 mg PO Q4H PRN PRN Reason: Pain (Mild 1-3)/fever Last Admin: 02/18/17 07:40 Dose: 650 mg Albuterol/Ipratropium (Duoneb 3.0-0.5 Mg/3 Ml) 3 ml NEB Q4HRRT PRN PRN Reason: Shortness Of Breath/wheezing Amlodipine Besylate (Norvasc) 10 mg PO DAILY [facility] Last Admin: 02/21/17 08:41 Dose: 10 mg Hydrochlorothiazide (Hydrochlorothiazide) 25 mg PO DAILY [facility] Last Admin: 02/21/17 08:42 Dose: 25 mg Levofloxacin/Dextrose 750 mg/ (Premix) 150 mls @ 100 mls/hr IV Q48H [facility] Last Admin: 02/19/17 17:01 Dose: 100 mls/hr Heparin Sod,Pork In 0.45% Nacl (Heparin-1/2ns 25,000 Units/500) 25,000 unit in 500 mls @ 22.845 mls/hr IV TITRATE AMMON; 18 UNITS/KG/HR PRN Reason: Protocol Last Titration: 02/21/17 07:07 Dose: 13 units/kg/hr, 16.499 mls/hr Metoprolol Tartrate (Lopressor) 25 mg PO Q12HR [facility] Last Admin: 02/21/17 08:42 Dose: 25 mg Ondansetron HCl (Zofran) 4 mg IVPUSH Q4H PRN PRN Reason: Nausea Oseltamivir Phosphate (Tamiflu) 30 mg PO BID [facility] Last Admin: 02/21/17 09:07 Dose: 30 mg Warfarin Sodium (Coumadin) 2.5 mg PO 1400 [facility] Discontinued Medications Acetaminophen (Tylenol) 650 mg PO NOW ONE Stop: 02/17/17 12:01 Last Admin: 02/17/17 12:22 Dose: 650 mg Digoxin (Lanoxin) 125 mcg IVPUSH ONETIME ONE Stop: 02/20/17 11:37 Last Admin: 02/20/17 11:45 Dose: 125 mcg Diltiazem HCl (Diltiazem) 10 mg IVPUSH ONETIME ONE Stop: 02/20/17 09:01 Last Admin: 02/20/17 09:11 Dose: 10 mg Diltiazem HCl (Diltiazem) 10 mg IVPUSH ONETIME ONE Stop: 02/20/17 10:16 Last Admin: 02/20/17 10:26 Dose: 10 mg Enoxaparin Sodium (Lovenox) 30 mg SUBCUT DAILY [facility] Last Admin: 02/20/17 10:30 Dose: Not Given Heparin Sodium (Porcine) (Heparin Sodium) 5,000 units IVPUSH ONETIME ONE Stop: 02/20/17 16:26 Last Admin: 02/20/17 17:21 Dose: 5,000 units Sodium Chloride (Normal Saline) 1,000 mls @ 250 mls/hr IV STAT ONE Stop: 02/17/17 15:59 Last Admin: 02/17/17 12:22 Dose: 250 mls/hr Levofloxacin/Dextrose 500 mg/ (Premix) 100 mls @ 100 mls/hr IV ONETIME ONE Stop: 02/17/17 15:07 Last Admin: 02/17/17 14:23 Dose: 100 mls/hr Sodium Chloride (Normal Saline) 1,000 mls @ 125 mls/hr IV ASDIRECTED [facility] Stop: 02/18/17 01:14 Last Admin: 02/17/17 17:51 Dose: 125 mls/hr Sodium Chloride (Normal Saline) 1,000 mls @ 125 mls/hr IV ASDIRECTED [facility] Stop: 02/18/17 20:14 Last Admin: 02/18/17 13:21 Dose: 125 mls/hr Magnesium Sulfate 2 gm/ Premix 50 mls @ 50 mls/hr IV ONETIME ONE Stop: 02/20/17 10:17 Last Admin: 02/20/17 10:10 Dose: 50 mls/hr Sodium Chloride (Normal Saline) 1,000 mls @ 999 mls/hr IV .Bolus ONE Stop: 02/20/17 11:16 Last Admin: 02/20/17 10:24 Dose: 999 mls/hr Diltiazem HCl 100 mg/ Sodium (Chloride) 100 mls @ 5 mls/hr IV TITRATE AMMON; 5 MG /HR PRN Reason: Protocol Magnesium Sulfate 4 gm/ Premix 100 mls @ 50 mls/hr IV ONETIME ONE Stop: 02/21/17 10:11 Last Admin: 02/21/17 09:12 Dose: 50 mls/hr Metoprolol Tartrate (Lopressor) 25 mg PO ONETIME ONE Stop: 02/20/17 11:38 Last Admin: 02/20/17 11:46 Dose: 25 mg Oseltamivir Phosphate (Tamiflu) 75 mg PO ONETIME ONE Stop: 02/17/17 14:09 Last Admin: 02/17/17 14:23 Dose: 75 mg Warfarin Sodium (Coumadin Ask) 1 each PO ONETIME ONE Stop: 02/21/17 08:13 Last Admin: 02/21/17 09:26 Dose: Not Given - Exam Quality Assessment: DVT Prophylaxis General: Alert, Oriented, Cooperative, No Acute Distress Neck: Supple Lungs: Clear to Auscultation, Normal Respiratory Effort Cardiovascular: Regular Rate, Regular Rhythm. No: Irregular Rhythm, Tachycardia GI/Abdominal Exam: Normal Bowel Sounds, Soft, Non-Tender, No Organomegaly, No Distention, No Abnormal Bruit, No Mass, Pelvis Stable Extremities: Normal Inspection, Normal Range of Motion, Non-Tender, No Pedal Edema, Normal Capillary Refill Neurological: No New Focal Deficit Psy/Mental Status: Alert, Normal Affect, Normal Mood - Problem List & Annotations (1) New onset a-fib SNOMED Code(s): 19189810 Code(s): I48.91 - UNSPECIFIED ATRIAL FIBRILLATION Status: Acute Current Visit: Yes (2) Influenza A SNOMED Code(s): 720476690 Code(s): J10.1 - FLU DUE TO OTH IDENT INFLUENZA VIRUS W OTH RESP MANIFEST Status: Acute Current Visit: Yes (3) Pneumonia SNOMED Code(s): 584048631 Code(s): J18.9 - PNEUMONIA, UNSPECIFIED ORGANISM Status: Acute Current Visit: Yes (4) Obstructive uropathy SNOMED Code(s): 3677816 Code(s): N13.9 - OBSTRUCTIVE AND REFLUX UROPATHY, UNSPECIFIED Status: Acute Current Visit: Yes (5) Acute kidney injury SNOMED Code(s): 02820084 Code(s): N17.9 - ACUTE KIDNEY FAILURE, UNSPECIFIED Status: Acute Current Visit: Yes (6) Dementia SNOMED Code(s): 72209250 Code(s): F03.90 - UNSPECIFIED DEMENTIA WITHOUT BEHAVIORAL DISTURBANCE Status: Chronic Current Visit: Yes Qualifiers: Alzheimer's disease onset: unspecified onset Dementia behavioral disturbance: without behavioral disturbance (7) HTN (hypertension) SNOMED Code(s): 53569801 Code(s): I10 - ESSENTIAL (PRIMARY) HYPERTENSION Status: Chronic Current Visit: Yes Qualifiers: Hypertension type: essential hypertension Qualified Code(s): I10 - Essential (primary) hypertension - Problem List Review Problem List Initiated/Reviewed/Updated: Yes - My Orders Last 24 Hours: My Active Orders 02/20/17 10:08 Resuscitation Status Routine 02/20/17 10:38 Consult to Physician [CONS] Urgent 02/20/17 10:40 Notify Provider Consults [RC] ASDIRECTED 02/20/17 16:30 Heparin Sod,Pork In 0.45% Nacl [Heparin-1/2Ns 25,000 Units/500] 25,000 unit in 500 ml IV TITRATE 02/20/17 21:00 Metoprolol Tartrate [Lopressor] 25 mg PO Q12HR 02/21/17 10:24 LIPID PANEL [CHEM] Routine 02/22/17 05:11 BASIC METABOLIC PANEL,BMP [CHEM] AM CBC WITH AUTO DIFF [HEME] AM MAGNESIUM [CHEM] AM - Plan Plan:: This 81 year old male was admitted with influenza and possible community acquired pneumonia. 1. CAP/influenza: Improving. Cough continues slightly. Repeat CXR yesterday, showed no RLL pneumonia. Continue Levaquin and Tamiflu. 2. New onset Atrial fibrillation: RVR resolved, yesterday after Metoprolol and Digoxin. Continue Metoprolol tartrate 25 mg BID, no further Afib episodes overnight. Remains on telemetry with HR 60-70s SR. Heparin gtt started last evening to full anticoagulate patient, coumadin to start today. Will monitor INR , goal to be 2.0 before transfer to [facility]. Will arrange outpatient follow up with Cardiology. ECHO completed which shows LV EF 50-55%, normal left ventricular systolic function, mild aortic valve regurg, mild mitral regurg, and no region wall abnormalities. Supplementing Magnesium today, 4 gm IV. 3. 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 unresponsiveness likely secondary to hypoperfusion due to afib yesterday. Back to near baseline today. Dr Hoskins consulted, please see consult notes. Lipid panel obtained today. LDL 97, HDL 27 total 139. Will start Atrovastatin 40 mg daily at bedtime. Has outpatient follow up already with Dr Hoskins. 4. HTN: Improving, 140/60s today. Monitor for today. Continue Norvasc and HCTZ. 4. Obstructive uropathy with LAVERN: CR 1.7, plateauing. Lujan in place. Will start Flomax, will refer to urology as outpatient. 5. Dementia: Case management consulted regarding longterm placement. VTE prophylaxis: Pending imaging, will fully anticoagulate with Heparin while bridging Coumadin. Dispo: [facility] longterm, pending improvement. Will hold discharge today due to new onset afib.
[2017-02-21] MEDS: Tamsulosin 0.4 MG Cap.ER PO SCH (13:17)
[2017-02-21] MEDS: Warfarin 2.5 MG Tab PO SCH (13:17)
[2017-02-21] MEDS ORDERED: Warfarin 2.5 MG Tab PO ONE (14:00)
--- NOTE | 2017-02-21 16:22 | ECHO ---
The echocardiogram report can be seen in this patient's EMR ([facility] medical records) in the Reports section. The report has also been scanned into PACS and can be seen there. [email or web address]
[2017-02-21] MEDS: Levofloxacin 250 MG Tab PO SCH (16:50)
[2017-02-21] MEDS: atorvaSTATin 40 MG Tab PO SCH (21:25)
[2017-02-21] MEDS: Heparin Sod,Pork In 0.45% Nacl 25,000 UNIT/500 ML IV.SOLN IV SCH (21:49)
[2017-02-22] MEDS: Hydrochlorothiazide 25 MG Tab PO SCH (08:09)
[2017-02-22] MEDS: Tamsulosin 0.4 MG Cap.ER PO SCH (08:09)
[2017-02-22] MEDS: amLODIPine 5 MG Tab PO SCH (08:09)
[2017-02-22] MEDS: Metoprolol Tartrate 25 MG Tab PO SCH ×2 (08:09→20:18)
[2017-02-22] MEDS: Oseltamivir 30 MG Cap PO SCH ×2 (08:11→20:05)
[2017-02-22] MEDS ORDERED: Magnesium Sulfate/Water 2 GM in Premix Bag 1 BAG IV ONE (09:14)
[2017-02-22] MEDS ORDERED: Potassium Chloride 20 MEQ Tab.ER PO ONE (09:14)
--- NOTE | 2017-02-22 09:16 | PCM.PN ---
- General Info Date of Service: 02/22/17 Admission Dx/Problem (Free Text): Admission Diagnosis/Problem Admission Diagnosis/Problem Influenza Subjective Update: Much improved today, more alert and back to baseline per . No complaints of pain, no chest pain or SOB. Up with help in room. Functional Status: Reports: Pain Controlled, Tolerating Diet, Ambulating, Urinating - Review of Systems HEENT: Reports: No Symptoms, Glasses. Denies: Headaches, Sore Throat, Visual Changes Pulmonary: Reports: No Symptoms. Denies: Shortness of Breath Cardiovascular: Reports: No Symptoms. Denies: Chest Pain Gastrointestinal: Reports: No Symptoms. Denies: Abdominal Pain, Nausea, Vomiting Genitourinary: Reports: No Symptoms. Denies: Dysuria, Frequency, Burning Musculoskeletal: Reports: No Symptoms. Denies: Neck Pain Neurological: Reports: No Symptoms. Denies: Confusion Psychiatric: Reports: No Symptoms. Denies: Confusion - Patient Data Vitals - Most Recent: Last Vital Signs Temp 99 F 02/22/17 08:00 Pulse 62 02/22/17 08:09 Resp 16 02/22/17 08:00 BP 124/64 02/22/17 08:09 Pulse Ox 93 L 02/22/17 08:00 Weight - Most Recent: 63.458 kg I&O - Last 24 Hours: Intake & Output 02/21/17 02/22/17 02/22/17 22:59 06:59 14:59 Intake Total 520 499 Output Total 825 700 Balance -305 -201 Lab Results Last 24 Hours: Laboratory Results - last 24 hr 02/21/17 02/21/17 02/21/17 Range/Units 06:12 12:11 18:15 WBC (4.0-11.0) K/uL RBC (4.50-5.90) M/uL Hgb (13.0-17.0) g/dL Hct (38.0-50.0) % MCV (80.0-98.0) fL MCH (27.0-32.0) pg MCHC (31.0-37.0) g/dL RDW Std Deviation (28.0-62.0) fl RDW Coeff of Stuart (11.0-15.0) % Plt Count (150-400) K/uL MPV (7.40-12.00) fL Neut % (Auto) (48.0-80.0) % Lymph % (Auto) (16.0-40.0) % [place] % (Auto) (0.0-15.0) % Eos % (Auto) (0.0-7.0) % Baso % (Auto) (0.0-1.5) % Neut # (Auto) (1.4-5.7) K/uL Lymph # (Auto) (0.6-2.4) K/uL [place] # (Auto) (0.0-0.8) K/uL Eos # (Auto) (0.0-0.7) K/uL Baso # (Auto) (0.0-0.1) K/uL Nucleated RBC % /100WBC Nucleated RBCs # K/uL INR (0.86-1.11) APTT 58.3 H 52.7 H (18.6-31.3) SEC Sodium (136-146) mmol/L Potassium (3.5-5.1) mmol/L Chloride (98-110) mmol/L Carbon Dioxide (21-31) mmol/L BUN (6.0-23.0) mg/dL Creatinine (0.6-1.5) mg/dL Est Cr Clr Drug Dosing mL/min Estimated GFR (MDRD) ml/min Glucose (60-110) mg/dL Calcium (8.8-10.8) mg/dL Magnesium (1.5-2.3) mEq/L Triglycerides 74 (10-190) mg/dL Cholesterol 139 (131-240) mg/dL LDL Cholesterol, Calc 97 (60-180) mg/dL VLDL Cholesterol 15 (5-55) mg/dL HDL Cholesterol 27 L (40-80) mg/dL Cholesterol/HDL Ratio 5.1 (3.3-6.0) 02/22/17 02/22/17 02/22/17 Range/Units 06:13 06:13 06:13 WBC 5.39 (4.0-11.0) K/uL RBC 3.62 L (4.50-5.90) M/uL Hgb 11.4 L (13.0-17.0) g/dL Hct 33.4 L (38.0-50.0) % MCV 92.3 (80.0-98.0) fL MCH 31.5 (27.0-32.0) pg MCHC 34.1 (31.0-37.0) g/dL RDW Std Deviation 43.1 (28.0-62.0) fl RDW Coeff of Stuart 13 (11.0-15.0) % Plt Count 108 L (150-400) K/uL MPV 11.60 (7.40-12.00) fL Neut % (Auto) 68.5 (48.0-80.0) % Lymph % (Auto) 18.7 (16.0-40.0) % [place] % (Auto) 12.6 (0.0-15.0) % Eos % (Auto) 0.2 (0.0-7.0) % Baso % (Auto) 0.0 (0.0-1.5) % Neut # (Auto) 3.7 (1.4-5.7) K/uL Lymph # (Auto) 1.0 (0.6-2.4) K/uL [place] # (Auto) 0.7 (0.0-0.8) K/uL Eos # (Auto) 0.0 (0.0-0.7) K/uL Baso # (Auto) 0.0 (0.0-0.1) K/uL Nucleated RBC % 0.0 /100WBC Nucleated RBCs # 0 K/uL INR (0.86-1.11) APTT 49.5 H (18.6-31.3) SEC Sodium 138 (136-146) mmol/L Potassium 3.8 (3.5-5.1) mmol/L Chloride 103 (98-110) mmol/L Carbon Dioxide 24 (21-31) mmol/L BUN 32 H (6.0-23.0) mg/dL Creatinine 1.6 H (0.6-1.5) mg/dL Est Cr Clr Drug Dosing 31.40 mL/min Estimated GFR (MDRD) 41.5 ml/min Glucose 97 (60-110) mg/dL Calcium 8.6 L (8.8-10.8) mg/dL Magnesium 1.8 (1.5-2.3) mEq/L Triglycerides (10-190) mg/dL Cholesterol (131-240) mg/dL LDL Cholesterol, Calc (60-180) mg/dL VLDL Cholesterol (5-55) mg/dL HDL Cholesterol (40-80) mg/dL Cholesterol/HDL Ratio (3.3-6.0) 02/22/17 Range/Units 06:13 WBC (4.0-11.0) K/uL RBC (4.50-5.90) M/uL Hgb (13.0-17.0) g/dL Hct (38.0-50.0) % MCV (80.0-98.0) fL MCH (27.0-32.0) pg MCHC (31.0-37.0) g/dL RDW Std Deviation (28.0-62.0) fl RDW Coeff of Stuart (11.0-15.0) % Plt Count (150-400) K/uL MPV (7.40-12.00) fL Neut % (Auto) (48.0-80.0) % Lymph % (Auto) (16.0-40.0) % [place] % (Auto) (0.0-15.0) % Eos % (Auto) (0.0-7.0) % Baso % (Auto) (0.0-1.5) % Neut # (Auto) (1.4-5.7) K/uL Lymph # (Auto) (0.6-2.4) K/uL [place] # (Auto) (0.0-0.8) K/uL Eos # (Auto) (0.0-0.7) K/uL Baso # (Auto) (0.0-0.1) K/uL Nucleated RBC % /100WBC Nucleated RBCs # K/uL INR 1.11 (0.86-1.11) APTT (18.6-31.3) SEC Sodium (136-146) mmol/L Potassium (3.5-5.1) mmol/L Chloride (98-110) mmol/L Carbon Dioxide (21-31) mmol/L BUN (6.0-23.0) mg/dL Creatinine (0.6-1.5) mg/dL Est Cr Clr Drug Dosing mL/min Estimated GFR (MDRD) ml/min Glucose (60-110) mg/dL Calcium (8.8-10.8) mg/dL Magnesium (1.5-2.3) mEq/L Triglycerides (10-190) mg/dL Cholesterol (131-240) mg/dL LDL Cholesterol, Calc (60-180) mg/dL VLDL Cholesterol (5-55) mg/dL HDL Cholesterol (40-80) mg/dL Cholesterol/HDL Ratio (3.3-6.0) Med Orders - Current: Current Medications Acetaminophen (Tylenol) 650 mg PO Q4H PRN PRN Reason: Pain (Mild 1-3)/fever Last Admin: 02/18/17 07:40 Dose: 650 mg Albuterol/Ipratropium (Duoneb 3.0-0.5 Mg/3 Ml) 3 ml NEB Q4HRRT PRN PRN Reason: Shortness Of Breath/wheezing Amlodipine Besylate (Norvasc) 10 mg PO DAILY [facility] Last Admin: 02/22/17 08:09 Dose: 10 mg Atorvastatin Calcium (Lipitor) 40 mg PO BEDTIME [facility] Last Admin: 02/21/17 21:25 Dose: 40 mg Hydrochlorothiazide (Hydrochlorothiazide) 25 mg PO DAILY [facility] Last Admin: 02/22/17 08:09 Dose: 25 mg Heparin Sod,Pork In 0.45% Nacl (Heparin-1/2ns 25,000 Units/500) 25,000 unit in 500 mls @ 22.845 mls/hr IV TITRATE [facility]MON; 18 UNITS/KG/HR PRN Reason: Protocol Last Admin: 02/21/17 21:49 Dose: 13 units/kg/hr, 16.499 mls/hr Magnesium Sulfate 2 gm/ Premix 50 mls @ 50 mls/hr IV ONETIME ONE Stop: 02/22/17 10:13 Levofloxacin (Levaquin) 750 mg PO Q48H [facility] Last Admin: 02/21/17 16:50 Dose: 750 mg Metoprolol Tartrate (Lopressor) 25 mg PO Q12HR [facility] Last Admin: 02/22/17 08:09 Dose: 25 mg Ondansetron HCl (Zofran) 4 mg IVPUSH Q4H PRN PRN Reason: Nausea Oseltamivir Phosphate (Tamiflu) 30 mg PO BID [facility] Last Admin: 02/22/17 08:11 Dose: 30 mg Potassium Chloride (Klor-Con M20) 40 meq PO ONETIME ONE Stop: 02/22/17 09:15 Tamsulosin HCl (Flomax) 0.4 mg PO PCBREAKFAST [facility] Last Admin: 02/22/17 08:09 Dose: 0.4 mg Warfarin Sodium (Coumadin) 2.5 mg PO 1400 [facility] Last Admin: 02/21/17 13:17 Dose: 2.5 mg Warfarin Sodium (Coumadin) 2.5 mg PO ONETIME@1400 ONE Stop: 02/22/17 14:01 Discontinued Medications Acetaminophen (Tylenol) 650 mg PO NOW ONE Stop: 02/17/17 12:01 Last Admin: 02/17/17 12:22 Dose: 650 mg Digoxin (Lanoxin) 125 mcg IVPUSH ONETIME ONE Stop: 02/20/17 11:37 Last Admin: 02/20/17 11:45 Dose: 125 mcg Diltiazem HCl (Diltiazem) 10 mg IVPUSH ONETIME ONE Stop: 02/20/17 09:01 Last Admin: 02/20/17 09:11 Dose: 10 mg Diltiazem HCl (Diltiazem) 10 mg IVPUSH ONETIME ONE Stop: 02/20/17 10:16 Last Admin: 02/20/17 10:26 Dose: 10 mg Enoxaparin Sodium (Lovenox) 30 mg SUBCUT DAILY [facility] Last Admin: 02/20/17 10:30 Dose: Not Given Heparin Sodium (Porcine) (Heparin Sodium) 5,000 units IVPUSH ONETIME ONE Stop: 02/20/17 16:26 Last Admin: 02/20/17 17:21 Dose: 5,000 units Sodium Chloride (Normal Saline) 1,000 mls @ 250 mls/hr IV STAT ONE Stop: 02/17/17 15:59 Last Admin: 02/17/17 12:22 Dose: 250 mls/hr Levofloxacin/Dextrose 500 mg/ (Premix) 100 mls @ 100 mls/hr IV ONETIME ONE Stop: 02/17/17 15:07 Last Admin: 02/17/17 14:23 Dose: 100 mls/hr Levofloxacin/Dextrose 750 mg/ (Premix) 150 mls @ 100 mls/hr IV Q48H [facility] Last Admin: 02/19/17 17:01 Dose: 100 mls/hr Sodium Chloride (Normal Saline) 1,000 mls @ 125 mls/hr IV ASDIRECTED [facility] Stop: 02/18/17 01:14 Last Admin: 02/17/17 17:51 Dose: 125 mls/hr Sodium Chloride (Normal Saline) 1,000 mls @ 125 mls/hr IV ASDIRECTED [facility] Stop: 02/18/17 20:14 Last Admin: 02/18/17 13:21 Dose: 125 mls/hr Magnesium Sulfate 2 gm/ Premix 50 mls @ 50 mls/hr IV ONETIME ONE Stop: 02/20/17 10:17 Last Admin: 02/20/17 10:10 Dose: 50 mls/hr Sodium Chloride (Normal Saline) 1,000 mls @ 999 mls/hr IV .Bolus ONE Stop: 02/20/17 11:16 Last Admin: 02/20/17 10:24 Dose: 999 mls/hr Diltiazem HCl 100 mg/ Sodium (Chloride) 100 mls @ 5 mls/hr IV TITRATE AMMON; 5 MG /HR PRN Reason: Protocol Magnesium Sulfate 4 gm/ Premix 100 mls @ 50 mls/hr IV ONETIME ONE Stop: 02/21/17 10:11 Last Admin: 02/21/17 09:12 Dose: 50 mls/hr Metoprolol Tartrate (Lopressor) 25 mg PO ONETIME ONE Stop: 02/20/17 11:38 Last Admin: 02/20/17 11:46 Dose: 25 mg Oseltamivir Phosphate (Tamiflu) 75 mg PO ONETIME ONE Stop: 02/17/17 14:09 Last Admin: 02/17/17 14:23 Dose: 75 mg Warfarin Sodium (Coumadin Ask) 1 each PO ONETIME ONE Stop: 02/21/17 08:13 Last Admin: 02/21/17 09:26 Dose: Not Given Warfarin Sodium (Coumadin) 2.5 mg PO ONETIME@1400 ONE Stop: 02/21/17 14:01 Last Admin: 02/21/17 13:16 Dose: 2.5 mg - Exam General: Alert, Cooperative, No Acute Distress. No: Oriented Neck: Supple Lungs: Clear to Auscultation, Normal Respiratory Effort Cardiovascular: Regular Rate, Regular Rhythm. No: Irregular Rhythm Extremities: Normal Inspection, Normal Range of Motion, Non-Tender, No Pedal Edema, Normal Capillary Refill Neurological: No New Focal Deficit Psy/Mental Status: Alert, Normal Affect, Normal Mood - Problem List & Annotations (1) New onset a-fib SNOMED Code(s): 57718801 Code(s): I48.91 - UNSPECIFIED ATRIAL FIBRILLATION Status: Acute Current Visit: Yes (2) Influenza A SNOMED Code(s): 312797341 Code(s): J10.1 - FLU DUE TO OTH IDENT INFLUENZA VIRUS W OTH RESP MANIFEST Status: Acute Current Visit: Yes (3) Pneumonia SNOMED Code(s): 002147732 Code(s): J18.9 - PNEUMONIA, UNSPECIFIED ORGANISM Status: Acute Current Visit: Yes (4) Obstructive uropathy SNOMED Code(s): 7378767 Code(s): N13.9 - OBSTRUCTIVE AND REFLUX UROPATHY, UNSPECIFIED Status: Acute Current Visit: Yes (5) Acute kidney injury SNOMED Code(s): 02340993 Code(s): N17.9 - ACUTE KIDNEY FAILURE, UNSPECIFIED Status: Acute Current Visit: Yes (6) Dementia SNOMED Code(s): 59426726 Code(s): F03.90 - UNSPECIFIED DEMENTIA WITHOUT BEHAVIORAL DISTURBANCE Status: Chronic Current Visit: Yes Qualifiers: Alzheimer's disease onset: unspecified onset Dementia behavioral disturbance: without behavioral disturbance (7) HTN (hypertension) SNOMED Code(s): 45434177 Code(s): I10 - ESSENTIAL (PRIMARY) HYPERTENSION Status: Chronic Current Visit: Yes Qualifiers: Hypertension type: essential hypertension Qualified Code(s): I10 - Essential (primary) hypertension - Problem List Review Problem List Initiated/Reviewed/Updated: Yes - My Orders Last 24 Hours: My Active Orders 02/21/17 12:00 Tamsulosin [Flomax] 0.4 mg PO PCBREAKFAST 02/21/17 13:13 Communication Order [RC] DAILY 02/21/17 17:00 Levofloxacin [Levaquin] 750 mg PO Q48H 02/21/17 21:00 atorvaSTATin [Lipitor] 40 mg PO BEDTIME 02/22/17 09:14 GLYCOSYLATED HEMOGLOBIN,HGBA1C [CHEM] Routine Magnesium Sulfate/Water [Magnesium Sulfate 2 GM in Water 50 ML] 2 gm Premix Bag 1 bag IV ONETIME Potassium Chloride [Klor-Con M20] 40 meq PO ONETIME ONE 02/23/17 05:11 INR,PT,PROTHROMBIN TIME [COAG] AM 02/24/17 05:11 INR,PT,PROTHROMBIN TIME [COAG] AM - Plan Plan:: This 81 year old male was admitted with influenza and possible community acquired pneumonia. 1. CAP/influenza: Improving. Cough continues slightly. Repeat CXR yesterday, showed no RLL pneumonia. Continue Levaquin, but changed to PO and Tamiflu. 2. New onset Atrial fibrillation: Stable, remains SR. Continue Metoprolol. Remains on telemetry with HR 60-70s SR. Heparin gtt remains in place as INR becomes therapeutic after starting coumadin. INR 1.11, goal to be 2.0 before transfer to [facility]. Will arrange outpatient follow up with Cardiology. Supplementing Magnesium today, 2 gm IV, as well as PO potassium. 3. Subacute CVA: Stable. Back to baseline mentation. No new CVA. Dr Hoskins consulted, please see consult notes. Continue Atrovastatin 40 mg daily at bedtime. Has outpatient follow up already with Dr Hoskins. 4. HTN: Stable and much improved. 120-130/70-80s Continue Norvasc and HCTZ. 4. Obstructive uropathy with LAVERN: CR 1.6, Lujan in place. Continue Flomax, will refer to urology as outpatient. 5. Dementia: Case management consulted regarding halfway placement. VTE prophylaxis: heparin gtt and Coumadin. Dispo: [facility], pending full anticoagulation and INR goal of 2.0.
[2017-02-22] MEDS: Warfarin 2.5 MG Tab PO SCH (13:45)
[2017-02-22] MEDS ORDERED: Warfarin 2.5 MG Tab PO ONE ×2 (14:00→15:52)
[2017-02-22] MEDS: atorvaSTATin 40 MG Tab PO SCH (20:04)
[2017-02-23] MEDS: Heparin Sod,Pork In 0.45% Nacl 25,000 UNIT/500 ML IV.SOLN IV SCH (05:00)
[2017-02-23] MEDS ORDERED: Magnesium Sulfate/Water 4 GM in Premix Bag 1 BAG IV ONE (08:15)
--- NOTE | 2017-02-23 08:15 | PCM.PN ---
- General Info Date of Service: 02/23/17 Admission Dx/Problem (Free Text): Admission Diagnosis/Problem Admission Diagnosis/Problem Influenza Subjective Update: Doing well this morning, denies any pain, no chest pain or SOB. He has discomfort with the indwelling catheter and really wants it out. No other complaints Functional Status: Reports: Pain Controlled, Tolerating Diet, Ambulating, Urinating - Review of Systems General: Reports: No Symptoms HEENT: Reports: No Symptoms. Denies: Headaches, Sore Throat, Visual Changes Pulmonary: Reports: No Symptoms. Denies: Shortness of Breath Cardiovascular: Reports: No Symptoms. Denies: Chest Pain Gastrointestinal: Reports: No Symptoms. Denies: Abdominal Pain, Nausea, Vomiting Genitourinary: Reports: Other (irritation from harper.) Musculoskeletal: Reports: No Symptoms Neurological: Reports: No Symptoms. Denies: Confusion Psychiatric: Reports: No Symptoms. Denies: Confusion - Patient Data Vitals - Most Recent: Last Vital Signs Temp 99.1 F 02/23/17 04:00 Pulse 77 02/23/17 04:00 Resp 19 02/23/17 04:00 BP 138/69 02/23/17 04:00 Pulse Ox 95 02/23/17 04:00 Weight - Most Recent: 63.458 kg I&O - Last 24 Hours: Intake & Output 02/22/17 02/23/17 02/23/17 22:59 06:59 14:59 Intake Total 603 348 Output Total 650 750 Balance -47 -402 Lab Results Last 24 Hours: Laboratory Results - last 24 hr 02/22/17 02/23/17 02/23/17 Range/Units 06:13 06:23 06:23 WBC 5.81 (4.0-11.0) K/uL RBC 3.91 L (4.50-5.90) M/uL Hgb 12.1 L (13.0-17.0) g/dL Hct 35.7 L (38.0-50.0) % MCV 91.3 (80.0-98.0) fL MCH 30.9 (27.0-32.0) pg MCHC 33.9 (31.0-37.0) g/dL RDW Std Deviation 42.4 (28.0-62.0) fl RDW Coeff of Stuart 13 (11.0-15.0) % Plt Count 122 L (150-400) K/uL MPV 11.00 (7.40-12.00) fL Neut % (Auto) 65.9 (48.0-80.0) % Lymph % (Auto) 18.6 (16.0-40.0) % [place] % (Auto) 15.1 H (0.0-15.0) % Eos % (Auto) 0.2 (0.0-7.0) % Baso % (Auto) 0.2 (0.0-1.5) % Neut # (Auto) 3.8 (1.4-5.7) K/uL Lymph # (Auto) 1.1 (0.6-2.4) K/uL [place] # (Auto) 0.9 H (0.0-0.8) K/uL Eos # (Auto) 0.0 (0.0-0.7) K/uL Baso # (Auto) 0.0 (0.0-0.1) K/uL Nucleated RBC % 0.0 /100WBC Nucleated RBCs # 0 K/uL INR 1.34 H (0.86-1.11) APTT 50.8 H (18.6-31.3) SEC Sodium (136-146) mmol/L Potassium (3.5-5.1) mmol/L Chloride (98-110) mmol/L Carbon Dioxide (21-31) mmol/L BUN (6.0-23.0) mg/dL Creatinine (0.6-1.5) mg/dL Est Cr Clr Drug Dosing mL/min Estimated GFR (MDRD) ml/min Glucose (60-110) mg/dL Hemoglobin A1c 5.6 (0.0-6.0) % Calcium (8.8-10.8) mg/dL Magnesium (1.5-2.3) mEq/L 02/23/17 02/23/17 Range/Units 06:23 06:23 WBC (4.0-11.0) K/uL RBC (4.50-5.90) M/uL Hgb (13.0-17.0) g/dL Hct (38.0-50.0) % MCV (80.0-98.0) fL MCH (27.0-32.0) pg MCHC (31.0-37.0) g/dL RDW Std Deviation (28.0-62.0) fl RDW Coeff of Stuart (11.0-15.0) % Plt Count (150-400) K/uL MPV (7.40-12.00) fL Neut % (Auto) (48.0-80.0) % Lymph % (Auto) (16.0-40.0) % [place] % (Auto) (0.0-15.0) % Eos % (Auto) (0.0-7.0) % Baso % (Auto) (0.0-1.5) % Neut # (Auto) (1.4-5.7) K/uL Lymph # (Auto) (0.6-2.4) K/uL [place] # (Auto) (0.0-0.8) K/uL Eos # (Auto) (0.0-0.7) K/uL Baso # (Auto) (0.0-0.1) K/uL Nucleated RBC % /100WBC Nucleated RBCs # K/uL INR (0.86-1.11) APTT (18.6-31.3) SEC Sodium 137 (136-146) mmol/L Potassium 4.1 (3.5-5.1) mmol/L Chloride 102 (98-110) mmol/L Carbon Dioxide 25 (21-31) mmol/L BUN 33 H (6.0-23.0) mg/dL Creatinine 1.7 H (0.6-1.5) mg/dL Est Cr Clr Drug Dosing 29.55 mL/min Estimated GFR (MDRD) 38.7 ml/min Glucose 97 (60-110) mg/dL Hemoglobin A1c (0.0-6.0) % Calcium 8.9 (8.8-10.8) mg/dL Magnesium 1.6 (1.5-2.3) mEq/L Med Orders - Current: Current Medications Acetaminophen (Tylenol) 650 mg PO Q4H PRN PRN Reason: Pain (Mild 1-3)/fever Last Admin: 02/18/17 07:40 Dose: 650 mg Albuterol/Ipratropium (Duoneb 3.0-0.5 Mg/3 Ml) 3 ml NEB Q4HRRT PRN PRN Reason: Shortness Of Breath/wheezing Amlodipine Besylate (Norvasc) 10 mg PO DAILY [facility] Last Admin: 02/22/17 08:09 Dose: 10 mg Atorvastatin Calcium (Lipitor) 40 mg PO BEDTIME [facility] Last Admin: 02/22/17 20:04 Dose: 40 mg Hydrochlorothiazide (Hydrochlorothiazide) 25 mg PO DAILY [facility] Last Admin: 02/22/17 08:09 Dose: 25 mg Heparin Sod,Pork In 0.45% Nacl (Heparin-1/2ns 25,000 Units/500) 25,000 unit in 500 mls @ 22.845 mls/hr IV TITRATE [facility]; 18 UNITS/KG/HR PRN Reason: Protocol Last Admin: 02/23/17 05:00 Dose: 13 units/kg/hr, 16.499 mls/hr Levofloxacin (Levaquin) 750 mg PO Q48H [facility] Last Admin: 02/21/17 16:50 Dose: 750 mg Metoprolol Tartrate (Lopressor) 25 mg PO Q12HR [facility] Last Admin: 02/22/17 20:18 Dose: 25 mg Ondansetron HCl (Zofran) 4 mg IVPUSH Q4H PRN PRN Reason: Nausea Oseltamivir Phosphate (Tamiflu) 30 mg PO BID [facility] Last Admin: 02/22/17 20:05 Dose: 30 mg Tamsulosin HCl (Flomax) 0.4 mg PO PCBREAKFAST [facility] Last Admin: 02/22/17 08:09 Dose: 0.4 mg Warfarin Sodium (Coumadin) 2.5 mg PO 1400 [facility] Last Admin: 02/22/17 13:45 Dose: 2.5 mg Discontinued Medications Acetaminophen (Tylenol) 650 mg PO NOW ONE Stop: 02/17/17 12:01 Last Admin: 02/17/17 12:22 Dose: 650 mg Digoxin (Lanoxin) 125 mcg IVPUSH ONETIME ONE Stop: 02/20/17 11:37 Last Admin: 02/20/17 11:45 Dose: 125 mcg Diltiazem HCl (Diltiazem) 10 mg IVPUSH ONETIME ONE Stop: 02/20/17 09:01 Last Admin: 02/20/17 09:11 Dose: 10 mg Diltiazem HCl (Diltiazem) 10 mg IVPUSH ONETIME ONE Stop: 02/20/17 10:16 Last Admin: 02/20/17 10:26 Dose: 10 mg Enoxaparin Sodium (Lovenox) 30 mg SUBCUT DAILY [facility] Last Admin: 02/20/17 10:30 Dose: Not Given Heparin Sodium (Porcine) (Heparin Sodium) 5,000 units IVPUSH ONETIME ONE Stop: 02/20/17 16:26 Last Admin: 02/20/17 17:21 Dose: 5,000 units Sodium Chloride (Normal Saline) 1,000 mls @ 250 mls/hr IV STAT ONE Stop: 02/17/17 15:59 Last Admin: 02/17/17 12:22 Dose: 250 mls/hr Levofloxacin/Dextrose 500 mg/ (Premix) 100 mls @ 100 mls/hr IV ONETIME ONE Stop: 02/17/17 15:07 Last Admin: 02/17/17 14:23 Dose: 100 mls/hr Levofloxacin/Dextrose 750 mg/ (Premix) 150 mls @ 100 mls/hr IV Q48H [facility] Last Admin: 02/19/17 17:01 Dose: 100 mls/hr Sodium Chloride (Normal Saline) 1,000 mls @ 125 mls/hr IV ASDIRECTED [facility] Stop: 02/18/17 01:14 Last Admin: 02/17/17 17:51 Dose: 125 mls/hr Sodium Chloride (Normal Saline) 1,000 mls @ 125 mls/hr IV ASDIRECTED [facility] Stop: 02/18/17 20:14 Last Admin: 02/18/17 13:21 Dose: 125 mls/hr Magnesium Sulfate 2 gm/ Premix 50 mls @ 50 mls/hr IV ONETIME ONE Stop: 02/20/17 10:17 Last Admin: 02/20/17 10:10 Dose: 50 mls/hr Sodium Chloride (Normal Saline) 1,000 mls @ 999 mls/hr IV .Bolus ONE Stop: 02/20/17 11:16 Last Admin: 02/20/17 10:24 Dose: 999 mls/hr Diltiazem HCl 100 mg/ Sodium (Chloride) 100 mls @ 5 mls/hr IV TITRATE [facility]; 5 MG /HR PRN Reason: Protocol Magnesium Sulfate 4 gm/ Premix 100 mls @ 50 mls/hr IV ONETIME ONE Stop: 02/21/17 10:11 Last Admin: 02/21/17 09:12 Dose: 50 mls/hr Magnesium Sulfate 2 gm/ Premix 50 mls @ 50 mls/hr IV ONETIME ONE Stop: 02/22/17 10:13 Last Admin: 02/22/17 10:16 Dose: 50 mls/hr Metoprolol Tartrate (Lopressor) 25 mg PO ONETIME ONE Stop: 02/20/17 11:38 Last Admin: 02/20/17 11:46 Dose: 25 mg Oseltamivir Phosphate (Tamiflu) 75 mg PO ONETIME ONE Stop: 02/17/17 14:09 Last Admin: 02/17/17 14:23 Dose: 75 mg Potassium Chloride (Klor-Con M20) 40 meq PO ONETIME ONE Stop: 02/22/17 09:15 Last Admin: 02/22/17 13:45 Dose: 40 meq Warfarin Sodium (Coumadin Ask) 1 each PO ONETIME ONE Stop: 02/21/17 08:13 Last Admin: 02/21/17 09:26 Dose: Not Given Warfarin Sodium (Coumadin) 2.5 mg PO ONETIME@1400 ONE Stop: 02/21/17 14:01 Last Admin: 02/21/17 13:16 Dose: 2.5 mg Warfarin Sodium (Coumadin) 2.5 mg PO ONETIME@1400 ONE Stop: 02/22/17 14:01 Last Admin: 02/22/17 13:45 Dose: 2.5 mg Warfarin Sodium (Coumadin) 2.5 mg PO ONETIME ONE Stop: 02/22/17 15:53 Last Admin: 02/22/17 16:45 Dose: Not Given - Exam General: Alert, Oriented Neck: Supple Lungs: Clear to Auscultation, Normal Respiratory Effort Cardiovascular: Regular Rate, Regular Rhythm GI/Abdominal Exam: Normal Bowel Sounds, Soft, Non-Tender, No Organomegaly, No Distention, No Abnormal Bruit, No Mass, Pelvis Stable Extremities: Normal Inspection, Normal Range of Motion, Non-Tender, No Pedal Edema, Normal Capillary Refill Neurological: No New Focal Deficit Psy/Mental Status: Alert, Normal Affect, Normal Mood - Problem List & Annotations (1) New onset a-fib SNOMED Code(s): 31380941 Code(s): I48.91 - UNSPECIFIED ATRIAL FIBRILLATION Status: Acute Current Visit: Yes (2) Influenza A SNOMED Code(s): 757820098 Code(s): J10.1 - FLU DUE TO OTH IDENT INFLUENZA VIRUS W OTH RESP MANIFEST Status: Acute Current Visit: Yes (3) Pneumonia SNOMED Code(s): 121782134 Code(s): J18.9 - PNEUMONIA, UNSPECIFIED ORGANISM Status: Acute Current Visit: Yes (4) Obstructive uropathy SNOMED Code(s): 7541108 Code(s): N13.9 - OBSTRUCTIVE AND REFLUX UROPATHY, UNSPECIFIED Status: Acute Current Visit: Yes (5) Acute kidney injury SNOMED Code(s): 94590776 Code(s): N17.9 - ACUTE KIDNEY FAILURE, UNSPECIFIED Status: Acute Current Visit: Yes (6) Dementia SNOMED Code(s): 44378804 Code(s): F03.90 - UNSPECIFIED DEMENTIA WITHOUT BEHAVIORAL DISTURBANCE Status: Chronic Current Visit: Yes Qualifiers: Alzheimer's disease onset: unspecified onset Dementia behavioral disturbance: without behavioral disturbance (7) HTN (hypertension) SNOMED Code(s): 44775029 Code(s): I10 - ESSENTIAL (PRIMARY) HYPERTENSION Status: Chronic Current Visit: Yes Qualifiers: Hypertension type: essential hypertension Qualified Code(s): I10 - Essential (primary) hypertension - Problem List Review Problem List Initiated/Reviewed/Updated: Yes - My Orders Last 24 Hours: My Active Orders 02/23/17 08:15 Magnesium Sulfate/Water [Magnesium Sulfate 4 GM in Water 100 ML] 4 gm Premix Bag 1 bag IV ONETIME 02/24/17 05:11 BMP [BASIC METABOLIC PANEL,BMP] [CHEM] AM CBC WITH AUTO DIFF [HEME] AM INR,PT,PROTHROMBIN TIME [COAG] AM 02/25/17 05:11 BMP [BASIC METABOLIC PANEL,BMP] [CHEM] AM CBC WITH AUTO DIFF [HEME] AM INR,PT,PROTHROMBIN TIME [COAG] AM 02/26/17 05:11 BMP [BASIC METABOLIC PANEL,BMP] [CHEM] AM CBC WITH AUTO DIFF [HEME] AM INR,PT,PROTHROMBIN TIME [COAG] AM - Plan Plan:: This 81 year old male was admitted with influenza and possible community acquired pneumonia. 1. CAP/influenza: Improving. Has been on 7 days of Levaquin, will stop after todays dose, he has completed treatment course. Will also stop tamiflu after today as well. 2. New onset Atrial fibrillation: Stable. Sinus rhythm. Continue Metoprolol. Heparin gtt remains in place as INR becomes therapeutic after starting Coumadin. INR 1.37, goal to be 2.0 before transfer to [facility]. Will arrange outpatient follow up with Cardiology. 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 No new CVA. Dr Hoskins consulted, please see consult notes. Continue Atrovastatin 40 mg daily at bedtime. Has outpatient follow up already with Dr Hoskins. 4. HTN: Stable. Continue Norvasc and HCTZ. 4. Obstructive uropathy: Continue Flomax, will refer to urology as outpatient. Will remove harper todya and trial voiding. Post void residuals, if patient has increasing residuals will replace harper. Patient very adamant to have harper removed. 5. Dementia: Case management consulted regarding [facility] placement. VTE prophylaxis: heparin gtt and Coumadin. Dispo: [facility], pending full anticoagulation and INR goal of 2.0.
[2017-02-23] MEDS: Tamsulosin 0.4 MG Cap.ER PO SCH (09:48)
[2017-02-23] MEDS: Metoprolol Tartrate 25 MG Tab PO SCH ×2 (09:49→21:33)
[2017-02-23] MEDS: Hydrochlorothiazide 25 MG Tab PO SCH (09:49)
[2017-02-23] MEDS: amLODIPine 5 MG Tab PO SCH (09:50)
[2017-02-23] MEDS: Oseltamivir 30 MG Cap PO SCH ×2 (09:55→21:29)
[2017-02-23] MEDS ORDERED: Warfarin 5 MG Tab PO SCH (14:00)
[2017-02-23] MEDS: Levofloxacin 250 MG Tab PO SCH (16:16)
[2017-02-23] MEDS: atorvaSTATin 40 MG Tab PO SCH (21:29)
--- NOTE | 2017-02-24 06:43 | PCM.PN ---
- General Info Date of Service: 02/24/17 Admission Dx/Problem (Free Text): Admission Diagnosis/Problem Admission Diagnosis/Problem Influenza Subjective Update: Much less fatigued this morning and states that he is eating better than he has in a long time. Has had no nausea or fevers overnight. Denies any chest pain, palpitation, shortness breath, syncopal episodes, or new focal neurologic deficits. Functional Status: Reports: Pain Controlled, Tolerating Diet, Ambulating - Review of Systems General: Denies: Fever, Weakness, Fatigue HEENT: Denies: Headaches, Visual Changes Pulmonary: Denies: Shortness of Breath, Hemoptysis Cardiovascular: Denies: Chest Pain, Palpitations, Edema Gastrointestinal: Denies: Abdominal Pain, Nausea, Vomiting Genitourinary: Reports: Retention. Denies: Dysuria Musculoskeletal: Denies: Neck Pain, Leg Pain Skin: Denies: Cyanosis Neurological: Denies: Confusion, Dizziness, Headache Psychiatric: Denies: Confusion, Depression - Patient Data Vitals - Most Recent: Last Vital Signs Temp 99.1 F 02/24/17 04:00 Pulse 72 02/24/17 04:00 Resp 18 02/24/17 04:00 BP 122/68 02/24/17 04:00 Pulse Ox 96 02/24/17 04:00 Weight - Most Recent: 63.458 kg I&O - Last 24 Hours: Intake & Output 02/23/17 02/23/17 02/24/17 14:59 22:59 06:59 Intake Total 100 704 100 Output Total 550 850 Balance 100 154 -750 Lab Results Last 24 Hours: Laboratory Results - last 24 hr 02/23/17 02/23/17 02/23/17 Range/Units 06:23 06:23 06:23 WBC 5.81 (4.0-11.0) K/uL RBC 3.91 L (4.50-5.90) M/uL Hgb 12.1 L (13.0-17.0) g/dL Hct 35.7 L (38.0-50.0) % MCV 91.3 (80.0-98.0) fL MCH 30.9 (27.0-32.0) pg MCHC 33.9 (31.0-37.0) g/dL RDW Std Deviation 42.4 (28.0-62.0) fl RDW Coeff of [place] 13 (11.0-15.0) % Plt Count 122 L (150-400) K/uL MPV 11.00 (7.40-12.00) fL Neut % (Auto) 65.9 (48.0-80.0) % Lymph % (Auto) 18.6 (16.0-40.0) % [place] % (Auto) 15.1 H (0.0-15.0) % Eos % (Auto) 0.2 (0.0-7.0) % Baso % (Auto) 0.2 (0.0-1.5) % Neut # (Auto) 3.8 (1.4-5.7) K/uL Lymph # (Auto) 1.1 (0.6-2.4) K/uL [place] # (Auto) 0.9 H (0.0-0.8) K/uL Eos # (Auto) 0.0 (0.0-0.7) K/uL Baso # (Auto) 0.0 (0.0-0.1) K/uL Nucleated RBC % 0.0 /100WBC Nucleated RBCs # 0 K/uL INR 1.34 H (0.86-1.11) APTT 50.8 H (18.6-31.3) SEC Sodium 137 (136-146) mmol/L Potassium 4.1 (3.5-5.1) mmol/L Chloride 102 (98-110) mmol/L Carbon Dioxide 25 (21-31) mmol/L BUN 33 H (6.0-23.0) mg/dL Creatinine 1.7 H (0.6-1.5) mg/dL Est Cr Clr Drug Dosing 29.55 mL/min Estimated GFR (MDRD) 38.7 ml/min Glucose 97 (60-110) mg/dL Calcium 8.9 (8.8-10.8) mg/dL Magnesium (1.5-2.3) mEq/L 02/23/17 02/24/17 Range/Units 06:23 06:02 WBC 6.11 (4.0-11.0) K/uL RBC 3.74 L (4.50-5.90) M/uL Hgb 11.6 L (13.0-17.0) g/dL Hct 34.0 L (38.0-50.0) % MCV 90.9 (80.0-98.0) fL MCH 31.0 (27.0-32.0) pg MCHC 34.1 (31.0-37.0) g/dL RDW Std Deviation 41.4 (28.0-62.0) fl RDW Coeff of [place] 12 (11.0-15.0) % Plt Count 147 L (150-400) K/uL MPV 10.70 (7.40-12.00) fL Neut % (Auto) 67.7 (48.0-80.0) % Lymph % (Auto) 17.7 (16.0-40.0) % [place] % (Auto) 14.1 (0.0-15.0) % Eos % (Auto) 0.3 (0.0-7.0) % Baso % (Auto) 0.2 (0.0-1.5) % Neut # (Auto) 4.1 (1.4-5.7) K/uL Lymph # (Auto) 1.1 (0.6-2.4) K/uL [place] # (Auto) 0.9 H (0.0-0.8) K/uL Eos # (Auto) 0.0 (0.0-0.7) K/uL Baso # (Auto) 0.0 (0.0-0.1) K/uL Nucleated RBC % 0.0 /100WBC Nucleated RBCs # 0 K/uL INR (0.86-1.11) APTT (18.6-31.3) SEC Sodium (136-146) mmol/L Potassium (3.5-5.1) mmol/L Chloride (98-110) mmol/L Carbon Dioxide (21-31) mmol/L BUN (6.0-23.0) mg/dL Creatinine (0.6-1.5) mg/dL Est Cr Clr Drug Dosing mL/min Estimated GFR (MDRD) ml/min Glucose (60-110) mg/dL Calcium (8.8-10.8) mg/dL Magnesium 1.6 (1.5-2.3) mEq/L [place] Results Last 24 Hours: Microbiology 02/23/17 11:48 Gram Stain - Preliminary Sputum - Expectorated Med Orders - Current: Current Medications Acetaminophen (Tylenol) 650 mg PO Q4H PRN PRN Reason: Pain (Mild 1-3)/fever Last Admin: 02/18/17 07:40 Dose: 650 mg Albuterol/Ipratropium (Duoneb 3.0-0.5 Mg/3 Ml) 3 ml NEB Q4HRRT PRN PRN Reason: Shortness Of Breath/wheezing Amlodipine Besylate (Norvasc) 10 mg PO DAILY [facility] Last Admin: 02/23/17 09:50 Dose: 10 mg Atorvastatin Calcium (Lipitor) 40 mg PO BEDTIME [facility] Last Admin: 02/23/17 21:29 Dose: 40 mg Hydrochlorothiazide (Hydrochlorothiazide) 25 mg PO DAILY [facility] Last Admin: 02/23/17 09:49 Dose: 25 mg Heparin Sod,Pork In 0.45% Nacl (Heparin-1/2ns 25,000 Units/500) 25,000 unit in 500 mls @ 22.845 mls/hr IV TITRATE [facility]; 18 UNITS/KG/HR PRN Reason: Protocol Last Admin: 02/23/17 05:00 Dose: 13 units/kg/hr, 16.499 mls/hr Levofloxacin (Levaquin) 750 mg PO Q48H [facility] Last Admin: 02/23/17 16:16 Dose: 750 mg Metoprolol Tartrate (Lopressor) 25 mg PO Q12HR [facility] Last Admin: 02/23/17 21:33 Dose: 25 mg Ondansetron HCl (Zofran) 4 mg IVPUSH Q4H PRN PRN Reason: Nausea Oseltamivir Phosphate (Tamiflu) 30 mg PO BID [facility] Last Admin: 02/23/17 21:29 Dose: 30 mg Tamsulosin HCl (Flomax) 0.4 mg PO PCBREAKFAST [facility] Last Admin: 02/23/17 09:48 Dose: 0.4 mg Discontinued Medications Acetaminophen (Tylenol) 650 mg PO NOW ONE Stop: 02/17/17 12:01 Last Admin: 02/17/17 12:22 Dose: 650 mg Digoxin (Lanoxin) 125 mcg IVPUSH ONETIME ONE Stop: 02/20/17 11:37 Last Admin: 02/20/17 11:45 Dose: 125 mcg Diltiazem HCl (Diltiazem) 10 mg IVPUSH ONETIME ONE Stop: 02/20/17 09:01 Last Admin: 02/20/17 09:11 Dose: 10 mg Diltiazem HCl (Diltiazem) 10 mg IVPUSH ONETIME ONE Stop: 02/20/17 10:16 Last Admin: 02/20/17 10:26 Dose: 10 mg Enoxaparin Sodium (Lovenox) 30 mg SUBCUT DAILY [facility] Last Admin: 02/20/17 10:30 Dose: Not Given Heparin Sodium (Porcine) (Heparin Sodium) 5,000 units IVPUSH ONETIME ONE Stop: 02/20/17 16:26 Last Admin: 02/20/17 17:21 Dose: 5,000 units Sodium Chloride (Normal Saline) 1,000 mls @ 250 mls/hr IV STAT ONE Stop: 02/17/17 15:59 Last Admin: 02/17/17 12:22 Dose: 250 mls/hr Levofloxacin/Dextrose 500 mg/ (Premix) 100 mls @ 100 mls/hr IV ONETIME ONE Stop: 02/17/17 15:07 Last Admin: 02/17/17 14:23 Dose: 100 mls/hr Levofloxacin/Dextrose 750 mg/ (Premix) 150 mls @ 100 mls/hr IV Q48H [facility] Last Admin: 02/19/17 17:01 Dose: 100 mls/hr Sodium Chloride (Normal Saline) 1,000 mls @ 125 mls/hr IV ASDIRECTED [facility] Stop: 02/18/17 01:14 Last Admin: 02/17/17 17:51 Dose: 125 mls/hr Sodium Chloride (Normal Saline) 1,000 mls @ 125 mls/hr IV ASDIRECTED [facility] Stop: 02/18/17 20:14 Last Admin: 02/18/17 13:21 Dose: 125 mls/hr Magnesium Sulfate 2 gm/ Premix 50 mls @ 50 mls/hr IV ONETIME ONE Stop: 02/20/17 10:17 Last Admin: 02/20/17 10:10 Dose: 50 mls/hr Sodium Chloride (Normal Saline) 1,000 mls @ 999 mls/hr IV .Bolus ONE Stop: 02/20/17 11:16 Last Admin: 02/20/17 10:24 Dose: 999 mls/hr Diltiazem HCl 100 mg/ Sodium (Chloride) 100 mls @ 5 mls/hr IV TITRATE [facility]; 5 MG /HR PRN Reason: Protocol Magnesium Sulfate 4 gm/ Premix 100 mls @ 50 mls/hr IV ONETIME ONE Stop: 02/21/17 10:11 Last Admin: 02/21/17 09:12 Dose: 50 mls/hr Magnesium Sulfate 2 gm/ Premix 50 mls @ 50 mls/hr IV ONETIME ONE Stop: 02/22/17 10:13 Last Admin: 02/22/17 10:16 Dose: 50 mls/hr Magnesium Sulfate 4 gm/ Premix 100 mls @ 50 mls/hr IV ONETIME ONE Stop: 02/23/17 10:14 Last Admin: 02/23/17 09:14 Dose: 50 mls/hr Metoprolol Tartrate (Lopressor) 25 mg PO ONETIME ONE Stop: 02/20/17 11:38 Last Admin: 02/20/17 11:46 Dose: 25 mg Oseltamivir Phosphate (Tamiflu) 75 mg PO ONETIME ONE Stop: 02/17/17 14:09 Last Admin: 02/17/17 14:23 Dose: 75 mg Potassium Chloride (Klor-Con M20) 40 meq PO ONETIME ONE Stop: 02/22/17 09:15 Last Admin: 02/22/17 13:45 Dose: 40 meq Warfarin Sodium (Coumadin Ask) 1 each PO ONETIME ONE Stop: 02/21/17 08:13 Last Admin: 02/21/17 09:26 Dose: Not Given Warfarin Sodium (Coumadin) 2.5 mg PO 1400 [facility] Last Admin: 02/22/17 13:45 Dose: 2.5 mg Warfarin Sodium (Coumadin) 2.5 mg PO ONETIME@1400 ONE Stop: 02/21/17 14:01 Last Admin: 02/21/17 13:16 Dose: 2.5 mg Warfarin Sodium (Coumadin) 2.5 mg PO ONETIME@1400 ONE Stop: 02/22/17 14:01 Last Admin: 02/22/17 13:45 Dose: 2.5 mg Warfarin Sodium (Coumadin) 2.5 mg PO ONETIME ONE Stop: 02/22/17 15:53 Last Admin: 02/22/17 16:45 Dose: Not Given Warfarin Sodium (Coumadin) 5 mg PO 02/23/17@1400 [facility] Stop: 02/23/17 14:01 Last Admin: 02/23/17 15:38 Dose: 5 mg - Exam Quality Assessment: DVT Prophylaxis General: Alert, Cooperative, No Acute Distress HEENT: Pupils Equal, Pupils Reactive, EOMI, Mucous Membr. Moist/[place] Neck: Supple, Trachea Midline, No JVD Lungs: Clear to Auscultation, Normal Respiratory Effort Cardiovascular: Regular Rate, Regular Rhythm GI/Abdominal Exam: Normal Bowel Sounds, Soft, Non-Tender, No Organomegaly, No Distention Back Exam: Normal Inspection Extremities: Normal Inspection, Non-Tender, No Pedal Edema, Normal Capillary Refill Peripheral Pulses: 2+: Radial (L), Radial (R), Posterior Tibial (L), Posterior Tibial (R), Dorsalis Pedis (L), Dorsalis Pedis (R) Skin: Warm, Dry, Intact Neurological: No New Focal Deficit Psy/Mental Status: Alert, Normal Affect, Normal Mood - Problem List & Annotations (1) Acute kidney injury SNOMED Code(s): 87564541 Code(s): N17.9 - ACUTE KIDNEY FAILURE, UNSPECIFIED Status: Resolved Priority: Medium Current Visit: Yes (2) Influenza A SNOMED Code(s): 835972776 Code(s): J10.1 - FLU DUE TO OTH IDENT INFLUENZA VIRUS W OTH RESP MANIFEST Status: Resolved Priority: High Current Visit: Yes (3) New onset a-fib SNOMED Code(s): 19634185 Code(s): I48.91 - UNSPECIFIED ATRIAL FIBRILLATION Status: Acute Priority : High Current Visit: Yes (4) Obstructive uropathy SNOMED Code(s): 5509639 Code(s): N13.9 - OBSTRUCTIVE AND REFLUX UROPATHY, UNSPECIFIED Status: Acute Priority: High Current Visit: Yes (5) Pneumonia SNOMED Code(s): 288541353 Code(s): J18.9 - PNEUMONIA, UNSPECIFIED ORGANISM Status: Resolved Priority: High Current Visit: Yes Qualifiers: Pneumonia type: due to unspecified organism Lung location: unspecified part of lung (6) Dementia SNOMED Code(s): 99899878 Code(s): F03.90 - UNSPECIFIED DEMENTIA WITHOUT BEHAVIORAL DISTURBANCE Status: Chronic Priority: Low Current Visit: Yes Qualifiers: Alzheimer's disease onset: unspecified onset Dementia behavioral disturbance: without behavioral disturbance (7) HTN (hypertension) SNOMED Code(s): 68107768 Code(s): I10 - ESSENTIAL (PRIMARY) HYPERTENSION Status: Chronic Priority : Low Current Visit: Yes Qualifiers: Hypertension type: essential hypertension Qualified Code(s): I10 - Essential (primary) hypertension - Problem List Review Problem List Initiated/Reviewed/Updated: Yes - My Orders Last 24 Hours: My Active Orders 02/23/17 18:05 Bladder Scan [RC] ASDIRECTED 02/24/17 06:32 Urinary Catheter Assessment [RC] Q4H 02/24/17 06:45 Harper Catheter Insertion [Insert Urinary Catheter] [OM.PC] Q24H - Plan Plan:: 81-year-old male admitted 02/17/17 for influenza and possible community-acquired pneumonia with past medical history of hypertension and dementia. 1. CAP/influenza: Resolved. Received 7 days of Levaquin and 5 days of Tamiflu. Remains afebrile without leukocytosis. 2. New onset Atrial fibrillation: Stable. Sinus rhythm. Continue Metoprolol. Heparin gtt remains in place as INR becomes therapeutic after starting Coumadin. INR up 1.82 from 1.37 yesterday, goal to be 2.0 before transfer to [facility]. Will arrange outpatient follow up with Cardiology. 3. Subacute CVA: Stable. Back to baseline mentation. No new CVA. Dr Hoskins consulted, please see consult notes. Continue Atrovastatin 40 mg daily at bedtime. Has outpatient follow up already with Dr Hoskins. 4. HTN: Stable. Continue Norvasc and HCTZ. 4. Obstructive uropathy: Continue Flomax, will refer to urology as outpatient. Yesterday trial after removing harper showed increasing residual volumes so harper was reinserted this am. Will need to leave harper in place on discharge and have urology follow-up. 5. Dementia: Case management consulted regarding [facility] placement. VTE prophylaxis: heparin gtt and Coumadin. Dispo: [facility], pending full anticoagulation and INR goal of 2.0.
[2017-02-24] MEDS: amLODIPine 5 MG Tab PO SCH (09:21)
[2017-02-24] MEDS: Hydrochlorothiazide 25 MG Tab PO SCH (09:21)
[2017-02-24] MEDS: Metoprolol Tartrate 25 MG Tab PO SCH ×2 (09:21→20:58)
[2017-02-24] MEDS: Tamsulosin 0.4 MG Cap.ER PO SCH (09:21)
[2017-02-24] MEDS: Oseltamivir 30 MG Cap PO SCH (09:22)
[2017-02-24] MEDS: Heparin Sod,Pork In 0.45% Nacl 25,000 UNIT/500 ML IV.SOLN IV SCH (12:29)
[2017-02-24] MEDS ORDERED: Bisacodyl 10 MG Supp RECTAL PRN (12:53)
[2017-02-24] MEDS ORDERED: Warfarin 5 MG Tab PO SCH (14:00)
[2017-02-24] MEDS: atorvaSTATin 40 MG Tab PO SCH (20:59)
[2017-02-25] MEDS: Metoprolol Tartrate 25 MG Tab PO SCH ×2 (08:56→21:54)
[2017-02-25] MEDS: Hydrochlorothiazide 25 MG Tab PO SCH (08:57)
[2017-02-25] MEDS: Tamsulosin 0.4 MG Cap.ER PO SCH (08:57)
[2017-02-25] MEDS: amLODIPine 5 MG Tab PO SCH (08:57)
--- NOTE | 2017-02-25 13:42 | PCM.PN ---
- General Info Date of Service: 02/25/17 Admission Dx/Problem (Free Text): Admission Diagnosis/Problem Admission Diagnosis/Problem Influenza Subjective Update: Doing well this morning. Wants to "have a shave and shower". No pain. Slept well. Eating and eliminating without difficulty. No chest pain, sob, nausea, vomiting, diarrhea. Functional Status: Reports: Pain Controlled, Tolerating Diet - Review of Systems General: Denies: Fever, Weakness, Fatigue HEENT: Denies: Headaches, Visual Changes Pulmonary: Denies: Shortness of Breath, Sputum, Hemoptysis Cardiovascular: Denies: Chest Pain, Palpitations, Edema Gastrointestinal: Denies: Abdominal Pain, Constipation, Diarrhea, Nausea, Vomiting Genitourinary: Denies: Dysuria, Hematuria Musculoskeletal: Denies: Neck Pain, Leg Pain Skin: Denies: Cyanosis Neurological: Reports: Confusion. Denies: Dizziness, Headache Psychiatric: Reports: Confusion. Denies: Depression - Patient Data Vitals - Most Recent: Last Vital Signs Temp 98.5 F 02/25/17 12:00 Pulse 55 L 02/25/17 12:00 Resp 16 02/25/17 12:00 BP 131/59 L 02/25/17 12:00 Pulse Ox 98 02/25/17 12:00 Weight - Most Recent: 63.458 kg I&O - Last 24 Hours: Intake & Output 02/24/17 02/25/17 02/25/17 22:59 06:59 14:59 Intake Total 777 200 Output Total 1400 650 Balance -623 -450 Lab Results Last 24 Hours: Laboratory Results - last 24 hr 02/25/17 02/25/17 02/25/17 Range/Units 05:55 05:55 05:55 WBC 6.46 (4.0-11.0) K/uL RBC 3.93 L (4.50-5.90) M/uL Hgb 12.1 L (13.0-17.0) g/dL Hct 35.7 L (38.0-50.0) % MCV 90.8 (80.0-98.0) fL MCH 30.8 (27.0-32.0) pg MCHC 33.9 (31.0-37.0) g/dL RDW Std Deviation 41.2 (28.0-62.0) fl RDW Coeff of [place] 12 (11.0-15.0) % Plt Count 180 (150-400) K/uL MPV 11.00 (7.40-12.00) fL Neut % (Auto) 74.7 (48.0-80.0) % Lymph % (Auto) 13.3 L (16.0-40.0) % [place] % (Auto) 11.8 (0.0-15.0) % Eos % (Auto) 0.2 (0.0-7.0) % Baso % (Auto) 0.0 (0.0-1.5) % Neut # (Auto) 4.8 (1.4-5.7) K/uL Lymph # (Auto) 0.9 (0.6-2.4) K/uL [place] # (Auto) 0.8 (0.0-0.8) K/uL Eos # (Auto) 0.0 (0.0-0.7) K/uL Baso # (Auto) 0.0 (0.0-0.1) K/uL Nucleated RBC % 0.0 /100WBC Nucleated RBCs # 0 K/uL INR 2.45 H (0.86-1.11) APTT 66.1 H (18.6-31.3) SEC Sodium 136 (136-146) mmol/L Potassium 4.1 (3.5-5.1) mmol/L Chloride 101 (98-110) mmol/L Carbon Dioxide 24 (21-31) mmol/L BUN 39 H (6.0-23.0) mg/dL Creatinine 1.9 H (0.6-1.5) mg/dL Est Cr Clr Drug Dosing 26.44 mL/min Estimated GFR (MDRD) 34.0 ml/min Glucose 104 (60-110) mg/dL Calcium 9.0 (8.8-10.8) mg/dL Magnesium 1.5 (1.5-2.3) mEq/L [place] Results Last 24 Hours: Microbiology 02/23/17 11:48 Gram Stain - Preliminary Sputum - Expectorated Sputum Culture - Final Normal Respiratory Diana Med Orders - Current: Current Medications Acetaminophen (Tylenol) 650 mg PO Q4H PRN PRN Reason: Pain (Mild 1-3)/fever Last Admin: 02/18/17 07:40 Dose: 650 mg Albuterol/Ipratropium (Duoneb 3.0-0.5 Mg/3 Ml) 3 ml NEB Q4HRRT PRN PRN Reason: Shortness Of Breath/wheezing Amlodipine Besylate (Norvasc) 10 mg PO DAILY [facility] Last Admin: 02/25/17 08:57 Dose: 10 mg Atorvastatin Calcium (Lipitor) 40 mg PO BEDTIME [facility] Last Admin: 02/24/17 20:59 Dose: 40 mg Bisacodyl (Dulcolax) 10 mg RECTAL DAILY PRN PRN Reason: Constipation Last Admin: 02/24/17 18:14 Dose: 10 mg Hydrochlorothiazide (Hydrochlorothiazide) 25 mg PO DAILY [facility] Last Admin: 02/25/17 08:57 Dose: 25 mg Metoprolol Tartrate (Lopressor) 25 mg PO Q12HR [facility] Last Admin: 02/25/17 08:56 Dose: 25 mg Ondansetron HCl (Zofran) 4 mg IVPUSH Q4H PRN PRN Reason: Nausea Tamsulosin HCl (Flomax) 0.4 mg PO PCBREAKFAST [facility] Last Admin: 02/25/17 08:57 Dose: 0.4 mg Warfarin Sodium (Coumadin) 2.5 mg PO 02/25/17@1400 [facility] Stop: 02/25/17 14:01 Discontinued Medications Acetaminophen (Tylenol) 650 mg PO NOW ONE Stop: 02/17/17 12:01 Last Admin: 02/17/17 12:22 Dose: 650 mg Digoxin (Lanoxin) 125 mcg IVPUSH ONETIME ONE Stop: 02/20/17 11:37 Last Admin: 02/20/17 11:45 Dose: 125 mcg Diltiazem HCl (Diltiazem) 10 mg IVPUSH ONETIME ONE Stop: 02/20/17 09:01 Last Admin: 02/20/17 09:11 Dose: 10 mg Diltiazem HCl (Diltiazem) 10 mg IVPUSH ONETIME ONE Stop: 02/20/17 10:16 Last Admin: 02/20/17 10:26 Dose: 10 mg Enoxaparin Sodium (Lovenox) 30 mg SUBCUT DAILY [facility] Last Admin: 02/20/17 10:30 Dose: Not Given Heparin Sodium (Porcine) (Heparin Sodium) 5,000 units IVPUSH ONETIME ONE Stop: 02/20/17 16:26 Last Admin: 02/20/17 17:21 Dose: 5,000 units Sodium Chloride (Normal Saline) 1,000 mls @ 250 mls/hr IV STAT ONE Stop: 02/17/17 15:59 Last Admin: 02/17/17 12:22 Dose: 250 mls/hr Levofloxacin/Dextrose 500 mg/ (Premix) 100 mls @ 100 mls/hr IV ONETIME ONE Stop: 02/17/17 15:07 Last Admin: 02/17/17 14:23 Dose: 100 mls/hr Levofloxacin/Dextrose 750 mg/ (Premix) 150 mls @ 100 mls/hr IV Q48H [facility] Last Admin: 02/19/17 17:01 Dose: 100 mls/hr Sodium Chloride (Normal Saline) 1,000 mls @ 125 mls/hr IV ASDIRECTED [facility] Stop: 02/18/17 01:14 Last Admin: 02/17/17 17:51 Dose: 125 mls/hr Sodium Chloride (Normal Saline) 1,000 mls @ 125 mls/hr IV ASDIRECTED [facility] Stop: 02/18/17 20:14 Last Admin: 02/18/17 13:21 Dose: 125 mls/hr Magnesium Sulfate 2 gm/ Premix 50 mls @ 50 mls/hr IV ONETIME ONE Stop: 02/20/17 10:17 Last Admin: 02/20/17 10:10 Dose: 50 mls/hr Sodium Chloride (Normal Saline) 1,000 mls @ 999 mls/hr IV .Bolus ONE Stop: 02/20/17 11:16 Last Admin: 02/20/17 10:24 Dose: 999 mls/hr Diltiazem HCl 100 mg/ Sodium (Chloride) 100 mls @ 5 mls/hr IV TITRATE [facility]; 5 MG /HR PRN Reason: Protocol Heparin Sod,Pork In 0.45% Nacl (Heparin-1/2ns 25,000 Units/500) 25,000 unit in 500 mls @ 22.845 mls/hr IV TITRATE [facility]; 18 UNITS/KG/HR PRN Reason: Protocol Last Admin: 02/24/17 12:29 Dose: 13 units/kg/hr, 16.499 mls/hr Magnesium Sulfate 4 gm/ Premix 100 mls @ 50 mls/hr IV ONETIME ONE Stop: 02/21/17 10:11 Last Admin: 02/21/17 09:12 Dose: 50 mls/hr Magnesium Sulfate 2 gm/ Premix 50 mls @ 50 mls/hr IV ONETIME ONE Stop: 02/22/17 10:13 Last Admin: 02/22/17 10:16 Dose: 50 mls/hr Magnesium Sulfate 4 gm/ Premix 100 mls @ 50 mls/hr IV ONETIME ONE Stop: 02/23/17 10:14 Last Admin: 02/23/17 09:14 Dose: 50 mls/hr Levofloxacin (Levaquin) 750 mg PO Q48H [facility] Last Admin: 02/23/17 16:16 Dose: 750 mg Metoprolol Tartrate (Lopressor) 25 mg PO ONETIME ONE Stop: 02/20/17 11:38 Last Admin: 02/20/17 11:46 Dose: 25 mg Oseltamivir Phosphate (Tamiflu) 75 mg PO ONETIME ONE Stop: 02/17/17 14:09 Last Admin: 02/17/17 14:23 Dose: 75 mg Oseltamivir Phosphate (Tamiflu) 30 mg PO BID [facility] Last Admin: 02/24/17 09:22 Dose: Not Given Potassium Chloride (Klor-Con M20) 40 meq PO ONETIME ONE Stop: 02/22/17 09:15 Last Admin: 02/22/17 13:45 Dose: 40 meq Warfarin Sodium (Coumadin Ask) 1 each PO ONETIME ONE Stop: 02/21/17 08:13 Last Admin: 02/21/17 09:26 Dose: Not Given Warfarin Sodium (Coumadin) 2.5 mg PO 1400 [facility] Last Admin: 02/22/17 13:45 Dose: 2.5 mg Warfarin Sodium (Coumadin) 2.5 mg PO ONETIME@1400 ONE Stop: 02/21/17 14:01 Last Admin: 02/21/17 13:16 Dose: 2.5 mg Warfarin Sodium (Coumadin) 2.5 mg PO ONETIME@1400 ONE Stop: 02/22/17 14:01 Last Admin: 02/22/17 13:45 Dose: 2.5 mg Warfarin Sodium (Coumadin) 2.5 mg PO ONETIME ONE Stop: 02/22/17 15:53 Last Admin: 02/22/17 16:45 Dose: Not Given Warfarin Sodium (Coumadin) 5 mg PO 02/23/17@1400 [facility] Stop: 02/23/17 14:01 Last Admin: 02/23/17 15:38 Dose: 5 mg Warfarin Sodium (Coumadin) 5 mg PO DAILY@1400 [facility] Last Admin: 02/24/17 14:22 Dose: 5 mg - Exam Quality Assessment: DVT Prophylaxis General: Alert, Cooperative, No Acute Distress HEENT: Pupils Equal, Pupils Reactive, EOMI, Mucous Membr. Moist/[place] Neck: Supple Lungs: Clear to Auscultation, Normal Respiratory Effort Cardiovascular: Regular Rate, Irregular Rhythm GI/Abdominal Exam: Normal Bowel Sounds, Soft, Non-Tender, No Organomegaly, No Distention Back Exam: Normal Inspection Extremities: Normal Inspection, Non-Tender, No Pedal Edema, Normal Capillary Refill Peripheral Pulses: 2+: Radial (L), Radial (R), Posterior Tibial (L), Posterior Tibial (R), Dorsalis Pedis (L), Dorsalis Pedis (R) Skin: Warm, Dry, Intact Neurological: No New Focal Deficit Psy/Mental Status: Alert, Normal Affect, Normal Mood - Problem List & Annotations (1) Acute kidney injury SNOMED Code(s): 87497497 Code(s): N17.9 - ACUTE KIDNEY FAILURE, UNSPECIFIED Status: Resolved Priority: Medium Current Visit: Yes (2) Influenza A SNOMED Code(s): 986165881 Code(s): J10.1 - FLU DUE TO OTH IDENT INFLUENZA VIRUS W OTH RESP MANIFEST Status: Resolved Priority: Medium Current Visit: Yes (3) New onset a-fib SNOMED Code(s): 83522997 Code(s): I48.91 - UNSPECIFIED ATRIAL FIBRILLATION Status: Acute Priority : High Current Visit: Yes (4) Obstructive uropathy SNOMED Code(s): 0467351 Code(s): N13.9 - OBSTRUCTIVE AND REFLUX UROPATHY, UNSPECIFIED Status: Acute Priority: High Current Visit: Yes (5) Pneumonia SNOMED Code(s): 714997055 Code(s): J18.9 - PNEUMONIA, UNSPECIFIED ORGANISM Status: Resolved Priority: High Current Visit: Yes Qualifiers: Pneumonia type: due to unspecified organism Lung location: unspecified part of lung (6) Dementia SNOMED Code(s): 53656978 Code(s): F03.90 - UNSPECIFIED DEMENTIA WITHOUT BEHAVIORAL DISTURBANCE Status: Chronic Priority: Low Current Visit: Yes Qualifiers: Alzheimer's disease onset: unspecified onset Dementia behavioral disturbance: without behavioral disturbance (7) HTN (hypertension) SNOMED Code(s): 41848010 Code(s): I10 - ESSENTIAL (PRIMARY) HYPERTENSION Status: Chronic Priority : Low Current Visit: Yes Qualifiers: Hypertension type: essential hypertension Qualified Code(s): I10 - Essential (primary) hypertension - Problem List Review Problem List Initiated/Reviewed/Updated: Yes - My Orders Last 24 Hours: My Active Orders 02/24/17 12:53 Bisacodyl [Dulcolax] 10 mg RECTAL DAILY PRN 02/25/17 14:00 Warfarin [Coumadin] 2.5 mg PO 02/25/17@1400 02/26/17 05:11 aPTT [PTT,PARTIAL THROMBOPLSTIN TIME] [COAG] AM 02/27/17 05:11 aPTT [PTT,PARTIAL THROMBOPLSTIN TIME] [COAG] AM - Plan Plan:: 81-year-old male admitted 02/17/17 for influenza and possible community-acquired pneumonia with past medical history of hypertension and dementia. 1. CAP/influenza: Resolved. Received 7 days of Levaquin and 5 days of Tamiflu. Remains afebrile without leukocytosis. 2. New onset Atrial fibrillation: Stable. Sinus rhythm. Continue Metoprolol. Discontinued Heparin gtt as INR therapeutic this am at INR 2.45. Did try to transfer to [facility] today but they do not accept new patients on the weekends. Will need to arrange outpatient follow up with Cardiology. 3. Subacute CVA: Stable. Back to baseline mentation. No new CVA. Dr Hoskins consulted, please see consult notes. Continue Atrovastatin 40 mg daily at bedtime. Has outpatient follow up already with Dr Hoskins. 4. HTN: Stable. Continue Norvasc and HCTZ. 4. Obstructive uropathy: Continue Flomax, will refer to urology as outpatient. Will need to leave harper in place as trial without harper led to increasing residual volumes and worsening renal function yesterday. 5. Dementia: Case management consulted regarding custodial placement. VTE prophylaxis: heparin gtt and Coumadin. Dispo: [facility] tomorrow.
[2017-02-25] MEDS ORDERED: Warfarin 2.5 MG Tab PO SCH (14:00)
[2017-02-25] MEDS: atorvaSTATin 40 MG Tab PO SCH (21:54)
[2017-02-26] MEDS: Tamsulosin 0.4 MG Cap.ER PO SCH (08:39)
[2017-02-26] MEDS: Hydrochlorothiazide 25 MG Tab PO SCH (08:42)
[2017-02-26] MEDS: amLODIPine 5 MG Tab PO SCH (08:42)
[2017-02-26] MEDS: Metoprolol Tartrate 25 MG Tab PO SCH (08:42)
--- NOTE | 2017-02-26 11:54 | PCM.DCSUM1 ---
Discharge Summary - Hospital Course Brief History: This 81 yo male with pmh of HTN, colon cancer with resection last year who presents with fevers, chills, and productive cough. Family reports that over the past year his dementia has worsened to the point where it is difficult for to take care of him at home. - Discharge Data Discharge Date: 02/26/17 Discharge Disposition: DC/Tfer to SNF 03 Condition: Stable - Discharge Diagnosis/Problem(s) (1) New onset a-fib SNOMED Code(s): 74470598 ICD Code: I48.91 - UNSPECIFIED ATRIAL FIBRILLATION Status: Acute Priority : High Current Visit: Yes (2) Influenza A SNOMED Code(s): 933057358 ICD Code: J10.1 - FLU DUE TO OTH IDENT INFLUENZA VIRUS W OTH RESP MANIFEST Status: Resolved Priority: Medium Current Visit: Yes (3) Pneumonia SNOMED Code(s): 426480864 ICD Code: J18.9 - PNEUMONIA, UNSPECIFIED ORGANISM Status: Resolved Priority: High Current Visit: Yes Qualifiers: Pneumonia type: due to unspecified organism Lung location: unspecified part of lung (4) Obstructive uropathy SNOMED Code(s): 3920755 ICD Code: N13.9 - OBSTRUCTIVE AND REFLUX UROPATHY, UNSPECIFIED Status: Acute Priority: High Current Visit: Yes (5) Acute kidney injury SNOMED Code(s): 42097816 ICD Code: N17.9 - ACUTE KIDNEY FAILURE, UNSPECIFIED Status: Resolved Priority: Medium Current Visit: Yes (6) Dementia SNOMED Code(s): 69284825 ICD Code: F03.90 - UNSPECIFIED DEMENTIA WITHOUT BEHAVIORAL DISTURBANCE Status: Chronic Priority: Low Current Visit: Yes Qualifiers: Alzheimer's disease onset: unspecified onset Dementia behavioral disturbance: without behavioral disturbance (7) HTN (hypertension) SNOMED Code(s): 65021453 ICD Code: I10 - ESSENTIAL (PRIMARY) HYPERTENSION Status: Chronic Priority : Low Current Visit: Yes Qualifiers: Hypertension type: essential hypertension Qualified Code(s): I10 - Essential (primary) hypertension - Patient Summary/Data Consults: Consultations 02/19/17 09:24 Consult to Case Management [CONS] Routine 02/19/17 11:32 Consult to Physical Therapy [PT Evaluation and Treatment] [CONS] Routine 02/20/17 10:38 Consult to Physician [CONS] Urgent - Patient Instructions Diet: Heart Healthy Diet Activity: As Tolerated Driving: Do Not Drive Showering/Bathing: May Shower Notify Provider of: Fever, Increased Pain, Swelling and Redness, Drainage, Nausea and/or Vomiting Other/Special Instructions: Harper cares. PT/OT to evaluate and treat. INR to be drawn 02/27/2017 and dosing to be adjusted per INR level. - Discharge Plan Prescriptions/Med Rec: Metoprolol Tartrate [Lopressor] 25 mg PO Q12HR #60 tablet Hydrochlorothiazide 25 mg PO DAILY #30 tablet Tamsulosin [Flomax] 0.4 mg PO PCBREAKFAST #30 cap.er Warfarin [Coumadin] 2.5 mg PO DAILY #10 tab Home Medications: Home Meds amLODIPine Besylate [Amlodipine Besylate] 10 mg PO DAILY 02/17/17 [History] Acetaminophen [Tylenol] 650 mg PO Q4H PRN #30 tablet 02/26/17 [Rx] Hydrochlorothiazide 25 mg PO DAILY #30 tablet 02/26/17 [Rx] Metoprolol Tartrate [Lopressor] 25 mg PO Q12HR #60 tablet 02/26/17 [Rx] Tamsulosin [Flomax] 0.4 mg PO PCBREAKFAST #30 cap.er 02/26/17 [Rx] Warfarin [Coumadin] 2.5 mg PO DAILY #10 tab 02/26/17 [Rx] atorvaSTATin [Lipitor] 40 mg PO BEDTIME tablet 02/26/17 [Rx] Patient Handouts: Influenza, Adult, Qnow-wm-Oais, Atrial Fibrillation, Easy-to- Read Referrals: Pedro Nation MD [Physician] - 03/01/17 11:00 am Griselda Hoskins MD [Physician] - 04/18/17 10:00 am Pernell Jones MD [Physician] - 03/01/17 12:30 pm - Discharge Summary/Plan Comment DC Time >30 min.: No Discharge Summary/Plan Comment: Discharge Diagnoses: RLL pneumonia-resolved and completed treatment course Influenza A- resolved and completed treatment course New Onset Paroxysmal Atrial Fib Obstructive Uropathy- harper in place Dementia-likely vascular HTN Mejia was initially admitted for generalized weakness, Influenza A positive and RLL pneumonia on February 17. He was treated with Tamiflu and Levaquin. He had improved and was near discharge and transfer to swing bed at [place] as planned with family. Patient had episode of unresponsiveness and encephalopathy. He was noted to be in Afib via monitor and placed on telemetry. EKG revealed Afib with RVR, rates in 150-160s. He was treated with a couple doses of IV Diltiazem which helped, but he would quickly revert to Afib RVR. He was given 1 dose of Dgioxin and started on PO Metoprolol tartrate 25 mg BID, after this patient remained in SR throughout the remainder of his stay. Due to his encephalopathy, stroke was considered and worked up with consultation with Dr Hoskins. Work up negative, but MRI showed small subcortical infarcts, subacute. White matter changes are severe suggesting dementia may be vascular. He was placed on Coumadin for anticoagulation, CHADSVASC score of 2. agreed with anticoagulation. ECHO completed which shows LV EF 50-55%, normal left ventricular systolic function, mild aortic valve regurg, mild mitral regurg, and no region wall abnormalities. He was started on HCTZ along with home dosing of Amlodipine for better BP control. Encephalopathy cleared within that same day and he has been alert and at baseline orientation since. On admission, obstructive uropathy with LAVERN was noted. Harper placed and Cr has fluctuated between 1.6 and 2.0. Harper was atempted to be removed after 3 days of Flomax, but he continued to have retention. Harper was replaced. Outpatient evaluation with Dr Jones, urology has been set up. he will also follow up with Dr Nation, cardiology as well as Dr. Hoskins, neurology as outpatient. Today he remains stable. INR 3.6, Coumadin dose to be held today with INR check tomorrow with subsequent dose adjustment as needed. Family at bedside who agree with transfer to [place] swing bed for strengthening. he is follow with PCP as needed. Tiffany Adrian NP, updated on patient condition and treatment plan so far. She has accepted patient for transfer to Swing bed today. - General Info Date of Service: 02/26/17 Admission Dx/Problem (Free Text: Admission Diagnosis/Problem Admission Diagnosis/Problem Influenza Subjective Update: Doing well today, no complaints. At baseline orientation. Denies chest pain, SOB or other pain. Family at bedside and ready to transfer him to [place] via private car once orders complete. Functional Status: Reports: Pain Controlled, Tolerating Diet, Ambulating - Review of Systems General: Reports: No Symptoms. Denies: Fever HEENT: Reports: No Symptoms. Denies: Sore Throat, Visual Changes Pulmonary: Reports: Cough. Denies: Shortness of Breath, Sputum, Wheezing Cardiovascular: Reports: No Symptoms. Denies: Chest Pain, Palpitations Gastrointestinal: Reports: No Symptoms. Denies: Abdominal Pain, Nausea, Vomiting Genitourinary: Reports: No Symptoms. Denies: Dysuria, Frequency, Burning Neurological: Reports: No Symptoms. Denies: Confusion Psychiatric: Reports: No Symptoms. Denies: Confusion - Patient Data Vitals - Most Recent: Last Vital Signs Temp 98.4 F 02/26/17 08:00 Pulse 82 02/26/17 08:42 Resp 18 02/26/17 08:00 BP 135/65 02/26/17 08:42 Pulse Ox 94 L 02/26/17 08:00 Weight - Most Recent: 63.458 kg I&O - Last 24 hours: Intake & Output 02/25/17 02/26/17 02/26/17 22:59 06:59 14:59 Intake Total 200 295 Output Total 300 415 Balance -100 -120 Lab Results - Last 24 hrs: Laboratory Results - last 24 hr 02/26/17 02/26/17 02/26/17 Range/Units 06:14 06:14 06:14 WBC 6.29 (4.0-11.0) K/uL RBC 3.90 L (4.50-5.90) M/uL Hgb 11.9 L (13.0-17.0) g/dL Hct 35.7 L (38.0-50.0) % MCV 91.5 (80.0-98.0) fL MCH 30.5 (27.0-32.0) pg MCHC 33.3 (31.0-37.0) g/dL RDW Std Deviation 42.1 (28.0-62.0) fl RDW Coeff of Stuart 13 (11.0-15.0) % Plt Count 200 (150-400) K/uL MPV 11.00 (7.40-12.00) fL Add Manual Diff YES Neutrophils % (Manual) 64 (48.0-80.0) % Band Neutrophils % 2 % Lymphocytes % (Manual) 12 L (16.0-40.0) % Monocytes % (Manual) 19 H (0.0-15.0) % Eosinophils % (Manual) 3 (0.0-7.0) % Nucleated RBC % 0.0 /100WBC Absolute Seg Neuts 4.0 (1.4-5.7) Band Neutrophils # 0.1 Lymphocytes # (Manual) 0.8 (0.6-2.4) Monocytes # (Manual) 1.2 H (0.0-0.8) Eosinophils # (Manual) 0.2 (0.0-0.7) Nucleated RBCs # 0 K/uL INR 3.68 H (0.86-1.11) APTT 40.2 H (18.6-31.3) SEC Sodium 139 (136-146) mmol/L Potassium 4.0 (3.5-5.1) mmol/L Chloride 102 (98-110) mmol/L Carbon Dioxide 25 (21-31) mmol/L BUN 44 H (6.0-23.0) mg/dL Creatinine 2.0 H (0.6-1.5) mg/dL Est Cr Clr Drug Dosing 25.12 mL/min Estimated GFR (MDRD) 32.1 ml/min Glucose 94 (60-110) mg/dL Calcium 9.2 (8.8-10.8) mg/dL Magnesium 1.5 (1.5-2.3) mEq/L BARRY Results - Last 24 hrs: Microbiology 02/23/17 11:48 Gram Stain - Preliminary Sputum - Expectorated Sputum Culture - Final Normal Respiratory Diana Med Orders - Current: Current Medications Acetaminophen (Tylenol) 650 mg PO Q4H PRN PRN Reason: Pain (Mild 1-3)/fever Last Admin: 02/18/17 07:40 Dose: 650 mg Albuterol/Ipratropium (Duoneb 3.0-0.5 Mg/3 Ml) 3 ml NEB Q4HRRT PRN PRN Reason: Shortness Of Breath/wheezing Amlodipine Besylate (Norvasc) 10 mg PO DAILY [facility] Last Admin: 02/26/17 08:42 Dose: 10 mg Atorvastatin Calcium (Lipitor) 40 mg PO BEDTIME [facility] Last Admin: 02/25/17 21:54 Dose: 40 mg Bisacodyl (Dulcolax) 10 mg RECTAL DAILY PRN PRN Reason: Constipation Last Admin: 02/24/17 18:14 Dose: 10 mg Hydrochlorothiazide (Hydrochlorothiazide) 25 mg PO DAILY [facility] Last Admin: 02/26/17 08:42 Dose: 25 mg Metoprolol Tartrate (Lopressor) 25 mg PO Q12HR [facility] Last Admin: 02/26/17 08:42 Dose: 25 mg Ondansetron HCl (Zofran) 4 mg IVPUSH Q4H PRN PRN Reason: Nausea Tamsulosin HCl (Flomax) 0.4 mg PO PCBREAKFAST [facility] Last Admin: 02/26/17 08:39 Dose: 0.4 mg Warfarin Sodium (Coumadin Ask) 1 each PO DAILY@1400 [facility] Discontinued Medications Acetaminophen (Tylenol) 650 mg PO NOW ONE Stop: 02/17/17 12:01 Last Admin: 02/17/17 12:22 Dose: 650 mg Digoxin (Lanoxin) 125 mcg IVPUSH ONETIME ONE Stop: 02/20/17 11:37 Last Admin: 02/20/17 11:45 Dose: 125 mcg Diltiazem HCl (Diltiazem) 10 mg IVPUSH ONETIME ONE Stop: 02/20/17 09:01 Last Admin: 02/20/17 09:11 Dose: 10 mg Diltiazem HCl (Diltiazem) 10 mg IVPUSH ONETIME ONE Stop: 02/20/17 10:16 Last Admin: 02/20/17 10:26 Dose: 10 mg Enoxaparin Sodium (Lovenox) 30 mg SUBCUT DAILY [facility] Last Admin: 02/20/17 10:30 Dose: Not Given Heparin Sodium (Porcine) (Heparin Sodium) 5,000 units IVPUSH ONETIME ONE Stop: 02/20/17 16:26 Last Admin: 02/20/17 17:21 Dose: 5,000 units Sodium Chloride (Normal Saline) 1,000 mls @ 250 mls/hr IV STAT ONE Stop: 02/17/17 15:59 Last Admin: 02/17/17 12:22 Dose: 250 mls/hr Levofloxacin/Dextrose 500 mg/ (Premix) 100 mls @ 100 mls/hr IV ONETIME ONE Stop: 02/17/17 15:07 Last Admin: 02/17/17 14:23 Dose: 100 mls/hr Levofloxacin/Dextrose 750 mg/ (Premix) 150 mls @ 100 mls/hr IV Q48H [facility] Last Admin: 02/19/17 17:01 Dose: 100 mls/hr Sodium Chloride (Normal Saline) 1,000 mls @ 125 mls/hr IV ASDIRECTED [facility]MON Stop: 02/18/17 01:14 Last Admin: 02/17/17 17:51 Dose: 125 mls/hr Sodium Chloride (Normal Saline) 1,000 mls @ 125 mls/hr IV ASDIRECTED [facility]MON Stop: 02/18/17 20:14 Last Admin: 02/18/17 13:21 Dose: 125 mls/hr Magnesium Sulfate 2 gm/ Premix 50 mls @ 50 mls/hr IV ONETIME ONE Stop: 02/20/17 10:17 Last Admin: 02/20/17 10:10 Dose: 50 mls/hr Sodium Chloride (Normal Saline) 1,000 mls @ 999 mls/hr IV .Bolus ONE Stop: 02/20/17 11:16 Last Admin: 02/20/17 10:24 Dose: 999 mls/hr Diltiazem HCl 100 mg/ Sodium (Chloride) 100 mls @ 5 mls/hr IV TITRATE AMMON; 5 MG /HR PRN Reason: Protocol Heparin Sod,Pork In 0.45% Nacl (Heparin-1/2ns 25,000 Units/500) 25,000 unit in 500 mls @ 22.845 mls/hr IV TITRATE AMMON; 18 UNITS/KG/HR PRN Reason: Protocol Last Admin: 02/24/17 12:29 Dose: 13 units/kg/hr, 16.499 mls/hr Magnesium Sulfate 4 gm/ Premix 100 mls @ 50 mls/hr IV ONETIME ONE Stop: 02/21/17 10:11 Last Admin: 02/21/17 09:12 Dose: 50 mls/hr Magnesium Sulfate 2 gm/ Premix 50 mls @ 50 mls/hr IV ONETIME ONE Stop: 02/22/17 10:13 Last Admin: 02/22/17 10:16 Dose: 50 mls/hr Magnesium Sulfate 4 gm/ Premix 100 mls @ 50 mls/hr IV ONETIME ONE Stop: 02/23/17 10:14 Last Admin: 02/23/17 09:14 Dose: 50 mls/hr Levofloxacin (Levaquin) 750 mg PO Q48H [facility] Last Admin: 02/23/17 16:16 Dose: 750 mg Metoprolol Tartrate (Lopressor) 25 mg PO ONETIME ONE Stop: 02/20/17 11:38 Last Admin: 02/20/17 11:46 Dose: 25 mg Oseltamivir Phosphate (Tamiflu) 75 mg PO ONETIME ONE Stop: 02/17/17 14:09 Last Admin: 02/17/17 14:23 Dose: 75 mg Oseltamivir Phosphate (Tamiflu) 30 mg PO BID [facility] Last Admin: 02/24/17 09:22 Dose: Not Given Potassium Chloride (Klor-Con M20) 40 meq PO ONETIME ONE Stop: 02/22/17 09:15 Last Admin: 02/22/17 13:45 Dose: 40 meq Warfarin Sodium (Coumadin Ask) 1 each PO ONETIME ONE Stop: 02/21/17 08:13 Last Admin: 02/21/17 09:26 Dose: Not Given Warfarin Sodium (Coumadin) 2.5 mg PO 1400 [facility] Last Admin: 02/22/17 13:45 Dose: 2.5 mg Warfarin Sodium (Coumadin) 2.5 mg PO ONETIME@1400 ONE Stop: 02/21/17 14:01 Last Admin: 02/21/17 13:16 Dose: 2.5 mg Warfarin Sodium (Coumadin) 2.5 mg PO ONETIME@1400 ONE Stop: 02/22/17 14:01 Last Admin: 02/22/17 13:45 Dose: 2.5 mg Warfarin Sodium (Coumadin) 2.5 mg PO ONETIME ONE Stop: 02/22/17 15:53 Last Admin: 02/22/17 16:45 Dose: Not Given Warfarin Sodium (Coumadin) 5 mg PO 02/23/17@1400 [facility] Stop: 02/23/17 14:01 Last Admin: 02/23/17 15:38 Dose: 5 mg Warfarin Sodium (Coumadin) 5 mg PO DAILY@1400 [facility] Last Admin: 02/24/17 14:22 Dose: 5 mg Warfarin Sodium (Coumadin) 2.5 mg PO 02/25/17@1400 [facility] Stop: 02/25/17 14:01 Last Admin: 02/25/17 14:15 Dose: 2.5 mg - Exam Quality Assessment: Reports: Urine Catheter. Denies: Supplemental Oxygen General: Reports: Alert, Cooperative, No Acute Distress. Denies: Oriented (at baseline though.) Neck: Reports: Supple Lungs: Reports: Clear to Auscultation, Normal Respiratory Effort Cardiovascular: Reports: Regular Rate, Regular Rhythm GI/Abdominal Exam: Normal Bowel Sounds, Soft, Non-Tender, No Organomegaly, No Distention, No Abnormal Bruit, No Mass, Pelvis Stable Back Exam: Reports: Normal Inspection, Full Range of Motion Extremities: Normal Inspection, Normal Range of Motion, Non-Tender, No Pedal Edema, Normal Capillary Refill Neurological: Reports: No New Focal Deficit Psy/Mental Status: Reports: Alert, Normal Affect, Normal Mood *Q Meaningful Use (DIS) - VTE *Q VTE Criteria *Q: - Stroke *Q Stroke Criteria *Q: - AMI *Q AMI Criteria *Q:
[2017-02-26 13:50] VITALS: BP 109/60
== END 2017-02-26 13:50 | DRG 193 ==
LOC: MW.ED 11:05 → MW.MS 14:09
PROVIDERS: ADMIT Internal Medicine; ATTEND Internal Medicine
DX: J09.X1 Influenza due to identified novel influenza A virus with pneumonia (principal); G93.40 Encephalopathy, unspecified; N17.9 Acute kidney failure, unspecified; I48.91 Unspecified atrial fibrillation; R53.1 Weakness; F03.90 Unspecified dementia, unspecified severity, without behavioral disturbance, psychotic disturbance, mood disturbance, and anxiety; N13.9 Obstructive and reflux uropathy, unspecified; I10 Essential (primary) hypertension; Z85.038 Personal history of other malignant neoplasm of large intestine; Z79.899 Other long term (current) drug therapy
CPT/HCPCS: 71045; 80053; 85025; 87804 ×2; 96361; 99284; A9270; J7040; 36415; 51702; 51798; 70450; 70450-26; 70544; 70544-26; 70547; 70547-26; 70551; 70551-26; 80048; 80061; 81001; 82962; 83036; 83735; 84146; 85610; 85730; 87070; 87205; 93005; 93306; 96365; 97161-GP; J1160; J1644; J1650; J1956; J3475; J3490